=== PATIENT | female | born 1970 | race Two or more races ===

== ENCOUNTER 2022-02-18 15:07 | Outpatient (REF) | payer OTHER, SELFPAY | END 2022-02-18 15:08 | disposition home or self-care (01) | LOC: HO.LAB 15:07 | PROVIDERS: Visit Provider Hospitalist | DX: Z13.89 Encounter for screening for other disorder (principal) ==

== ENCOUNTER 2022-06-04 14:53 | Outpatient (REF) | payer OTHER, SELFPAY ==
--- NOTE | ~2022-06-04 | XR_ITS ---
EXAMINATION: XR WRIST, RIGHT CLINICAL INFORMATION: Right wrist pain. COMPARISON: None TECHNIQUE: PA, lateral, oblique, and scaphoid views of the right wrist. FINDINGS: Mild soft tissue swelling at the right wrist. No acute fracture or malalignment. Bone mineralization is normal. Scaphoid appears intact. Joint spaces are normal. No erosions. Small cystic focus in the fourth metacarpal head is of doubtful clinical significance. Small chronic ossifications are evident at the long finger and small finger metacarpal bases and abdominal clinical significance. XR/XR wrist RT 2V IMPRESSION: Mild soft tissue swelling at the right wrist. No acute osseous findings.
== END 2022-06-04 14:54 | disposition home or self-care (01) ==
LOC: HO.XRAY 14:53
PROVIDERS: PCP Hospitalist; Visit Provider Hospitalist
DX: M25.531 Pain in right wrist (principal)
CPT/HCPCS: 73100

== ENCOUNTER 2022-06-11 05:56 | Outpatient (REF) | payer OTHER, SELFPAY ==
[2022-06-11 07:34] LABS: Hematocrit 40.9 % (37.0-47.0); Hemoglobin 13.2 g/dl (12.0-16.0); Mean Corpuscular HGB Conc 32.3 g/dl (31.0-35.0); Mean Corpuscular Hemoglobin 27.5 pg (27.0-33.0); Mean Corpuscular Volume 85.2 fL (80.0-98.0); Mean Platelet Volume 10.1 fL (9.4-12.3); Platelet Count 374 X10*3/uL (160-400); White Blood Count 9.8 X10*3/uL (4.8-10.8)
[2022-06-11 08:05] LABS: Alanine Aminotransferase 20 U/L (0-31); Albumin Level 4.1 g/dL (3.5-5.0); Alkaline Phosphatase 75 U/L (39-117); Anion Gap 16 (12-20); Aspartate Amino Transferase 15 U/L (5-31); Bilirubin Total 0.7 mg/dL (0.0-1.0); Blood Urea Nitrogen 17 mg/dL (9-16); Calcium 9.7 mg/dL (8.4-10.2); Carbon Dioxide 27 mmol/L (22-29); Chloride 102 mmol/L (96-108); Cholesterol 253 mg/dL; Estimated Glomerular Filt Rate > 60; Glucose Fasting 176 mg/dL (60-99); HDL Cholesterol 61 mg/dL; LDL Cholesterol Calculated 170 mg/dl; Potassium 4.6 mmol/L (3.3-5.1); Sodium 140 mmol/L (135-145); Total Protein 7.4 g/dL (6.5-8.0); Triglycerides 111 mg/dL
[2022-06-11 08:23] LABS: TSH reflex Free T4 3.81 uIU/mL (0.32-4.0)
== END 2022-06-11 05:57 | disposition home or self-care (01) ==
LOC: HO.LAB 05:56
PROVIDERS: PCP Hospitalist; Visit Provider Nurse Practitioner Family
DX: Z00.00 Encounter for general adult medical examination without abnormal findings (principal)
CPT/HCPCS: 36415; 80053; 80061; 84443; 85027

== ENCOUNTER 2023-07-19 07:57 | Outpatient (AMB) | payer OTHER, SELFPAY ==
--- NOTE | 2023-07-19 07:59 | A.OFFPC_ITS ---
Vital Signs 07/19/23 08:50 07/19/23 09:04 Height 5 ft 9 in Weight 183 lb 2 oz BMI 27.0 BP 186/84 H 167/78 H Blood Pressure Location Rt brachial Rt brachial Position Sitting Sitting Respiration 13 Pulse 104 H Pulse Source Pulse Oximeter Temp 98.2 F Intake Visit Reasons: TC SV/DM, HTN Intake Note: Follow up diabetes and blood pressure. She ran out of blood pressure medication 20 days ago. 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 Allergies No Known Allergies Allergy (Verified 07/19/23 09:10) Medication List - Last Reconciled 07/19/23 by Katie Llamas, CADD OPERATOR- amitriptyline 25 mg PO BEDTIME ammonium lactate 12% 1 appl topical BID bisoprolol-hydrochlorothiazide 5-6.25 mg 1 tab PO DAILY PRN blood sugar diagnostic (FreeStyle Lite Strips) As directed blood-glucose meter (FreeStyle Lite Meter kit) As directed empagliflozin (Jardiance) 25 mg PO QAM glipizide 5 mg PO BID lancets (FreeStyle Lancets) As directed metformin 1,000 mg PO BIDWMEAL naproxen 500 mg PO BID PRN Tobacco use date assessed: 06/04/22 Dental Screening Dental Screen Date: 07/19/23 Did you have a dental visit in the last 12 months?: Yes Did you have a dental problem in the last 6 months where you did not have access to dental care?: No Was dental information given to patient?: Patient has dentist HPI HPI Comments History of Present Illness Details 53-year-old Irish speaking female with hypertension, psoriasis, AFib, diabetes type 2, fatty liver, former smoker, hyperlipidemia, insomnia, microalbuminuria Health maintenance Colonoscopy has never had one, referral placed today DEXA never had done. Mammo also in DR. No records available. Reports normal w/in last year. Pap Diabetic eye exam reported UTD in the [facility] 2 months ago. NO records for me. Ok w/ new referral. Hemoglobin A1c 14% today Vaccines : declines flu shot Specialists: Op[facility] reports active but no records Labs 06/11/2022 show a normal CBC, normal CMP, total cholesterol 253, LDL 170, HDL 61, triglycerides 111, TSH 3.81, last hemoglobin A1c 06/04/2022 11.4% Intepreter: [id number] Here today to est care Has been w/o all of her medications for several weeks except her amytriptyline which she uses for sleep. In regards to her Afib reports she is active w/ Cards but i do not have any records. She is not on anti-coag. Labs from today show a sodium level of 131, BUN 15, creatinine 1.09, EGFR 52, random glucose 420, normal LFTs, normal B12, normal TSH, urine microalbumin creatinine ratio elevated at 62.3 [facility] Medical History (Updated 07/19/23 @ 15:25 by Katie Llamas, [facility]) Cholesterol calculus of gallbladder Fatty (change of) liver, not elsewhere classified Family History Mother Diabetes Social History (Updated 07/19/23 @ 08:50 by Kelsea Shields CMA) Household Members: Spouse Housing: Apartment Alcohol intake: current Alcohol intake frequency: holidays/special occasions only Patient Tobacco Use Status: Former Tobacco user Quit Date: 6 years ago Cigarettes Per Day: 4 e-Cigarette/Vaping Use: Never Used Second Hand Smoke Exposure: No service: No Current occupational status: employed 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 1. Little interest or pleasure in doing things: not at all 2. Feeling down, depressed, or hopeless: not at all 3. Trouble falling or staying asleep, or sleeping too much: not at all 4. Feeling tired or having little energy: not at all 5. Poor appetite or overeating: not at all 6. Feeling bad about yourself - or that you are a failure or have let yourself or your family down: not at all 7. Trouble concentrating on things, such as reading the newspaper or watching television: not at all 8. Moving or speaking so slowly that other people could have noticed. Or the opposite - being so fidgety or restless that you have been moving around a lot more than usual: not at all 9. Thoughts that you would be better off or of hurting yourself in some way: not at all Total score: 0 Depression Screening Interpretation: Negative Depression Screening Done: Yes [id number] - PHQ-9 Billing: Yes Source: Developed by Drs. Atilio Mccormack, Christi Galvez, Pio Stewart and colleagues, with an educational sam from [email or web address]. Thrive Questionnaire Date Thrive assessed: 07/19/23 What is your living situation today?: I have a steady place to live Within the past 12 months, did the food you bought not last and you didn't have the money to get more?: Never true Within the past 12 months, did you worry whether your food would run out before you got money to buy more?: Never true Do you have trouble paying for medicines?: No Do you have trouble getting transportation to medical appointments?: No Do you have trouble paying your heating and electricity bill?: No Do you have trouble taking care of your child, family member or friend?: No Do you have trouble with day-to-day activities such as bathing, preparing meals, shopping, managing finances, etc.?: No Are you currently unemployed and looking for a job?: No Are you interested in more education?: No Please select the resources that you would like help with: None Currently or been in a relationship where the following occur: no concerns reported THRIVE Score: 0 AUDIT C Alcohol Use Questionnaire (AUDIT-C) 1. How often do you have a drink containing alcohol?: Monthly or less 2. How many drinks containing alcohol do you have on a typical day when you are drinking?: 1 or 2 3. How often do you have six or more drinks on one occasion?: Never Total Score: 1 Score Reviewed/Action Taken: Yes STEFANO-7 AMB Questionnaire STEFANO-7 Feeling nervous, anxious, or on edge: 1 = Several days Not being able to stop or control worryin = Several days Worrying too much about different things: 1 = Several days Trouble relaxin = Not at all Being so restless that it is hard to sit still: 0 = Not at all Becoming easily annoyed or irritable: 0 = Not at all Feeling afraid as if something awful might happen: 0 = Not at all Total STEFANO-7 score (0-4 normal; 5-9 mild; 10-14 moderate; 15-21 severe): 3 Source: Developed by Christi SantizoW. Lenny, Pio Stewart and colleagues, with an educational sam from [email or web address]. STEFANO-7 Assessment Billing STEFANO-7 Assessment Tool: STEFANO-7 Assessment 25651 Review of Systems Const All systems reviewed & are unremarkable except as noted in HPI and below Physical exam (Primary Care) Vital Signs: Last Vital Signs Temp 98.2 F 07/19/23 08:50 Pulse 104 H 07/19/23 08:50 Resp 13 07/19/23 08:50 BP 167/78 H 07/19/23 09:04 Care Plan Goal for BP management: check labs restart meds BMI result Body Mass Index 27.0 BMI Assessment/Plan discussion: High BMI High, discussed plan: lifestyle Tobacco/Smoking Status: Tobacco use Status Tobacco use date assessed 06/04/22 07/19/23 08:00 Patient Tobacco Use Status Former Tobacco user 07/19/23 08:50 e-Cigarette/Vaping Use Never Used 07/19/23 08:50 PHQ-9: PHQ-9 Score PHQ-9: Total score 0 07/19/23 09:57 Depression Screening Interpretation: Negative Thrive Assessment: Date of Thrive Assessment Date Thrive assessed 07/19/23 07/19/23 09:29 Currently or been in a relationship where the following occur: no concerns reported Advance Care Planning discussion: Exists, not on file Date of discussion: 07/19/23 Time spent: 1-15 minutes, not on file Const Other: awake alert scleras nonicteric bilat MMM AFib LS CTAB BLE skin intact, dry, flaking, hairless, decreased PP bilat, toe nails thickened and fungal Abnormal monofilament and vibratory sensation bilat Mood and affect appropriate Office Procedures Diabetic Foot Exam G9226 - Diabetic Foot Exam Results AMB Hemoglobin A1c AMB Hemoglobin A1c 14.0 % Last Edit by Kelsea Shields CMA on 07/19/23 09:1 7 Results Reviewed Results Reviewed: Laboratory Last Values Hgb A1c (Clinic) 14.0 % (4.0-6.0) H 07/19/23 09:16 Assessment and Plan Assessment & Plan (1) Diabetes mellitus type 2 with complications: Comment: uncontrolled HgA1c 14% Plan: Refer to DM eye exam Was on metformin 1000 mg BID - has been w/o for weeks Record review show glipizide 5mg po BID, Jardiance 25 mg po QD RX in the past Plan: Start jardiance/metformin 12.5mg/1000mg 1 tab po BID, Glipizide 5mg po BID. Refill on testing supplies sent. Code(s): E11.8 - Type 2 diabetes mellitus with unspecified complications (2) HTN, goal below 130/80: Comment: Not at goal, w/o her meds for weeks Bisoprolol 5mg- HCTZ 6.25mg po QD - refill sent. Code(s): I10 - Essential (primary) hypertension (3) A-fib: Comment: noted on exam today, no cards records, not on anti-coag Refer to Cards for further mgmt On [employer] Code(s): I48.91 - Unspecified atrial fibrillation Qualifiers: Atrial fibrillation type: paroxysmal Qualified Code(s): I48.0 - Paroxysmal atrial fibrillation (4) Secondary hypercoagulable state: Comment: see Afib Code(s): D68.69 - Other thrombophilia (5) Fatty liver: Comment: noted in hx. Refer to GI for Colon and further mgmt 06/2024 LFTs WNL Code(s): K76.0 - Fatty (change of) liver, not elsewhere classified (6) Asymptomatic PVD (peripheral vascular disease): Comment: based on exam of decreased PP, skin dry, hairless Plan: check labs, start statin, start lac-hydrin BID, monitor skin integrity Code(s): I73.9 - Peripheral vascular disease, unspecified (7) Insomnia: Comment: well controlled on amitriptyline 25mg QHS, cont. Code(s): G47.00 - Insomnia, unspecified Qualifiers: Insomnia type: primary Qualified Code(s): F51.01 - Primary insomnia (8) Hyperlipidemia associated with type 2 diabetes mellitus: Comment: check direct LDL today as she is nonfasting start appropriate statin Code(s): E11.69 - Type 2 diabetes mellitus with other specified complication; E78.5 - Hyperlipidemia, unspecified (9) Diabetic peripheral neuropathy: Comment: DM foot exam today - abnormal monitor skin integrity Code(s): E11.42 - Type 2 diabetes mellitus with diabetic polyneuropathy (10) Microalbuminuria due to type 2 diabetes mellitus: Comment: 07/19/23 micro albumin/cr ratio 62.3 Code(s): E11.29 - Type 2 diabetes mellitus with other diabetic kidney complication; R80.9 - Proteinuria, unspecified (11) CKD (chronic kidney disease) stage 3, GFR 30-59 ml/min: Comment: Labs from today show a sodium level of 131, BUN 15, creatinine 1.09, EGFR 52, urine microalbumin creatinine ratio elevated at 62.3 starting her back on jardiance Code(s): N18.30 - Chronic kidney disease, stage 3 unspecified Qualifiers: Chronic kidney disease stage 3 subtype: stage 3a (GFR 45-59) Qualified Code(s): N18.31 - Chronic kidney disease, stage 3a Plan This note is constructed using voice recognition software. While every effort has been made to ensure accuracy in quality control lab technician, still errors may have been included Sometimes, these errors may affect the content or meaning of the given sentence . Total time spent caring for the patient today was 60 minutes. This includes time spent before the visit reviewing the chart, time spent during the visit, and time spent after the visit on documentation Orders: Orders TSH reflex Free T4 Today E10.69 - Type 1 diabetes mellitus with other specified complication, E10.8 - Type 1 diabetes mellitus with unspecified complications, E78.5 - Hyperlipidemia, unspecified, I10 - Essential (primary) hypertension, K76.0 - Fatty (change of) liver, not elsewhere classified Vitamin B12 and Folate Today E10.69 - Type 1 diabetes mellitus with other specified complication, E10.8 - Type 1 diabetes mellitus with unspecified complications, E78.5 - Hyperlipidemia, unspecified, I10 - Essential (primary) hypertension, K76.0 - Fatty (change of) liver, not elsewhere classified Hemoglobin A1c POC Today E10.8 - Type 1 diabetes mellitus with unspecified complications Comprehensive Met. Panel Today E10.69 - Type 1 diabetes mellitus with other specified complication, E10.8 - Type 1 diabetes mellitus with unspecified complications, E78.5 - Hyperlipidemia, unspecified, I10 - Essential (primary) hypertension, K76.0 - Fatty (change of) liver, not elsewhere classified LDL Cholesterol Direct Today E10.69 - Type 1 diabetes mellitus with other specified complication, E10.8 - Type 1 diabetes mellitus with unspecified complications, E78.5 - Hyperlipidemia, unspecified, I10 - Essential (primary) hypertension, K76.0 - Fatty (change of) liver, not elsewhere classified Vitamin D 1,25 dihydroxy Today E10.69 - Type 1 diabetes mellitus with other specified complication, E10.8 - Type 1 diabetes mellitus with unspecified complications, E78.5 - Hyperlipidemia, unspecified, I10 - Essential (primary) hypertension, K76.0 - Fatty (change of) liver, not elsewhere classified Microalbumin, Random (w Creat) Today E10.69 - Type 1 diabetes mellitus with other specified complication, E10.8 - Type 1 diabetes mellitus with unspecified complications, E78.5 - Hyperlipidemia, unspecified, I10 - Essential (primary) hypertension, K76.0 - Fatty (change of) liver, not elsewhere classified AMB Diabetic Foot Exam Today E11.8 - Type 2 diabetes mellitus with unspecified complications Referrals Diabetic Eye Exam Referral E10.8 - Type 1 diabetes mellitus with unspecified complications Gastroenterology Referral K76.0 - Fatty (change of) liver, not elsewhere classified, Z12.11 - Encounter for screening for malignant neoplasm of colon Cardiology Referral I48.91 - Unspecified atrial fibrillation Medications: New empagliflozin-metformin 12.5-1,000 mg 1 tab PO BID 180 tabs 0RF glipizide 5 mg PO BID 180 tabs 0RF ammonium lactate 12% 1 appl topical BID 385 grams 6RF Changed From bisoprolol-hydrochlorothiazide 5-6.25 mg 1 tab PO DAILY PRN 90 tabs 0RF afib I10 - Essential (primary) hypertension To bisoprolol-hydrochlorothiazide 5-6.25 mg 1 tab PO DAILY 90 tabs 0RF I10 - Essential (primary) hypertension Refilled blood sugar diagnostic (FreeStyle Lite Strips) As directed 100 ea 11RF E11.8 - Type 2 diabetes mellitus with unspecified complications lancets (FreeStyle Lancets) As directed 100 ea 11RF E11.8 - Type 2 diabetes mellitus with unspecified complications Discontinued metformin Discontinued Reason: Doctor's Order 1,000 mg PO BIDWMEAL 60 tabs 2RF E10.65 - Type 1 diabetes mellitus with hyperglycemia Patient Instructions: labs today, RTO in 1 week to f/u on labs, HTN and medications Review Patient declined Pneumococcal Vaccine: 07/19/23 Flu Vaccine not done: patient reason Declined TDap/Td: 07/19/23 Coding Level of Care Code Est Pt Level 5 (24172) Diagnoses Diabetes mellitus type 2 with complications E11.8 HTN, goal below 130/80 I10 Paroxysmal atrial fibrillation I48.0 Atrial fibrillation type: paroxysmal Secondary hypercoagulable state D68.69 Fatty liver K76.0 Asymptomatic PVD (peripheral vascular disease) I73.9 Primary insomnia F51.01 Insomnia type: primary Hyperlipidemia associated with type 2 diabetes mellitus E11.69; E78.5 Diabetic peripheral neuropathy E11.42 Microalbuminuria due to type 2 diabetes mellitus E11.29; R80.9 Stage 3a chronic kidney disease N18.31 Chronic kidney disease stage 3 subtype: stage 3a (GFR 45-59) CPT Codes Diabetic Foot Exam - CPT: G9226 - Diabetic Foot Exam ([id number]) Additional Codes STEFANO-7 Assessment Billing - STEFANO-7 Assessment Tool: STEFANO-7 Assessment 76837 ([id number]) Vital Signs *Quality* - Advance Care Planning discussion: Exists, not on file ([id number]) Vital Signs *Quality* - Time spent: 1-15 minutes, not on file ([id number])
[2023-07-19 08:50] VITALS: BP 186/84; PULSE 104; RESP 13; TEMP 36.8; BMI 27.0
[2023-07-19 09:04] VITALS: BP 167/78
== END 2023-07-19 09:36 | disposition home or self-care (01) ==
PROVIDERS: PCP Hospitalist; Visit Provider Nurse Practitioner Family
DX: Z00.00 Encounter for general adult medical examination without abnormal findings (principal)
CPT/HCPCS: 1124F; 99215

== ENCOUNTER 2023-07-19 09:15 | Outpatient (REF) | payer OTHER, SELFPAY | END 2023-07-19 09:16 | disposition home or self-care (01) | LOC: HO.LAB 09:15 | PROVIDERS: Visit Provider Nurse Practitioner Family | DX: Z13.89 Encounter for screening for other disorder (principal) ==

== ENCOUNTER 2023-07-19 09:42 | Outpatient (REF) | payer OTHER, SELFPAY ==
[2023-07-19 12:45] LABS: Microalbum/Creatinine Ratio Ur 62.3 ug/mg cr (<30)
[2023-07-19 13:03] LABS: Folate 10.6 ng/mL (> or = 4.0); Vitamin B12 355 pg/mL (200-900)
[2023-07-19 13:35] LABS: Alanine Aminotransferase 20 U/L (0-31); Albumin Level 4.5 g/dL (3.5-5.0); Alkaline Phosphatase 96 U/L (39-117); Anion Gap 17 (12-20); Aspartate Amino Transferase 14 U/L (5-31); Bilirubin Total 0.3 mg/dL (0.0-1.0); Blood Urea Nitrogen 15 mg/dL (9-16); Carbon Dioxide 23 mmol/L (22-29); Chloride 95 mmol/L (96-108); Estimated Glomerular Filt Rate 52; Glucose Random 420 mg/dL (60-115); Potassium 4.2 mmol/L (3.3-5.1); Sodium 131 mmol/L (135-145); Total Protein 8.6 g/dL (6.5-8.0)
[2023-07-20 21:23] LABS: LDL Cholesterol Direct 202 mg/dL (<100)
[2023-07-24 11:09] LABS: VITAMIN D (1,25 OH) D3 46 pg/mL; Vit D (1,25-Dihydroxy) Total 46 pg/mL (18-72); Vitamin D (1,25 OH) D2 <8 pg/mL
== END 2023-07-19 09:43 | disposition home or self-care (01) ==
LOC: HO.WFDLDS 09:42
PROVIDERS: Visit Provider Nurse Practitioner Family
DX: K76.0 Fatty (change of) liver, not elsewhere classified (principal); E10.69 Type 1 diabetes mellitus with other specified complication; E78.5 Hyperlipidemia, unspecified; I10 Essential (primary) hypertension
CPT/HCPCS: 36415; 80053; 82043; 82570; 82607; 82652; 82746; 83721; 84443

== ENCOUNTER 2023-08-12 09:45 | Outpatient (AMB) | payer OTHER, SELFPAY ==
[2023-08-12 09:50] VITALS: BP 156/78; PULSE 89; RESP 13; TEMP 36.3; O2SAT 99; BMI 26.7
--- NOTE | 2023-08-12 09:50 | A.OFFPC_ITS ---
Vital Signs 08/12/23 09:50 Height 5 ft 9 in Weight 181 lb 2 oz BMI 26.7 BP 156/78 H Blood Pressure Location Rt brachial Position Sitting Respiration 13 Pulse 89 Pulse Source Pulse Oximeter Temp 97.4 F Temp Source Temporal Artery Scan Pulse Oximetry (%) 99 Oxygen Delivery Method Room Air Intake Visit Reasons: 1 week follow up Intake Note: Patient still has not received the prescription that was prescribed last time she was here. Patient is also concerned about labs for pre-diabetes. Textile Machine Maintenance Mechanic Required: Yes Textile Machine Maintenance Mechanic Name: Melonie ([id number]) Accompanied by: Spouse Allergies No Known Allergies Allergy (Verified 08/12/23 09:57) Medication List - Last Reconciled 08/12/23 by Katie Llamas, CONNECTION WORKER- amitriptyline 25 mg PO BEDTIME ammonium lactate 12% 1 appl topical BID bisoprolol-hydrochlorothiazide 5-6.25 mg 1 tab PO DAILY blood sugar diagnostic (Contour Next Test Strips) As directed, twice per day blood-glucose meter (Vinny Next Glucose Meter kit) As directed, test twice per day empagliflozin-metformin 12.5-1,000 mg 1 tab PO BID glipizide 5 mg PO BID lancets As directed twice per day naproxen 500 mg PO BID PRN Tobacco use date assessed: 08/12/23 Dental Screening Dental Screen Date: 07/19/23 HPI HPI Comments History of Present Illness Details 53-year-old Azeri speaking female with hypertension, psoriasis, AFib, diabetes type 2, fatty liver, former smoker, hyperlipidemia, insomnia, microalbuminuria, ckd3 Health maintenance Colonoscopy has never had one, referral placed DEXA never had done. Mammo also in DR. No records available. Reports normal w/in last year. Pap Diabetic eye exam reported UTD in the DR. 2 months ago. NO records for me. Ok w/ new referral - placed. Hemoglobin A1c 14% 07/19/23 Vaccines : declines flu shot Specialists: [facility] reports active but no records Textile Machine Maintenance Mechanic: [id number] Here today to f/u on labs Of note - she did not call us back after voicemails left re: labs and meds. She also no showed appts. She is upset saying she is taking meds that she doesnt know why. She knows they are different. Synjardy is causing nausea and feels like it is causing hypoglycemia. Lots of time explaining to her labs and treatment plan. I advised her to update her demos before she leaves so that we can touch base with her. The male visitor here with her today was very rude - laughing and shaking his head; while patient seemed to try to engage she echoed whatever the male's response was. He did come around towards the end of the visit once he understood. States the out of pocket cost was 80$. Upset about not getting freestyle products, here w/ lancets and test strips. No meter. States she does not need a meter. However, this was unclear even w/ help from personal development educator. explained insurance covers Contour products, this was sent. It was also printed and given to her today on paper. states she didnt get RX for BP medication. She is unsure why. This was sent at the time of last visit and was resent again today. Male then states they picked up 30 day supply and 90 day was sent to [facility] and they are waiting. LABS FROM 07/19/2023 LOW SODIUM 131, NORMAL POTASSIUM, BUN OF 15, CREATININE 0.09, EGFR 52, RANDOM GLUCOSE 420, HEMOGLOBIN A1C OF 14% LFTS, ELEVATED DIRECT LDL AT 202, NORMAL B12, NORMAL VITAMIN-D, NORMAL TSH, ELEVATED URINE MICROALBUMIN CREATININE RATIO [facility] Medical History (Updated 08/12/23 @ 13:26 by Katie Llamas, [facility]) Cholesterol calculus of gallbladder Fatty (change of) liver, not elsewhere classified Surgical History (Updated 08/12/23 @ 10:02 by LIDA Eli) No pertinent past surgical history Family History Mother Diabetes Social History Household Members: Spouse Housing: Apartment Alcohol intake: current Alcohol intake frequency: holidays/special occasions only Patient Tobacco Use Status: Never used Tobacco Cigarettes Per Day: 4 e-Cigarette/Vaping Use: Never Used Second Hand Smoke Exposure: No service: No Current occupational status: employed 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 Current occupational exposures/hazards: No Cognitive needs: No Hearing needs: No Vision needs: No Questionnaire Thrive Questionnaire Date Thrive assessed: 07/19/23 Review of Systems Const All systems reviewed & are unremarkable except as noted in HPI and below Physical exam (Primary Care) Vital Signs: Last Vital Signs Temp 97.4 F 08/12/23 09:50 Pulse 89 08/12/23 09:50 Resp 13 08/12/23 09:50 BP 156/78 H 08/12/23 09:50 Pulse Ox 99 08/12/23 09:50 Oxygen Delivery Method Room Air 08/12/23 09:50 Care Plan Goal for BP management: TAKE MEDS DIRECTED Next steps: NN REFERRAL TO HELP COMPLIANCE BMI result Body Mass Index 26.7 BMI Assessment/Plan discussion: High BMI High, discussed plan: lifestyle Tobacco/Smoking Status: Tobacco use Status Tobacco use date assessed 08/12/23 08/12/23 10:03 Patient Tobacco Use Status Never used Tobacco 08/12/23 10:03 e-Cigarette/Vaping Use Never Used 08/12/23 09:50 Thrive Assessment: Date of Thrive Assessment Date Thrive assessed 07/19/23 08/12/23 09:50 Const Other: awake alert accompanied by male talking in full sentences Assessment and Plan Assessment & Plan (1) CKD (chronic kidney disease) stage 3, GFR 30-59 ml/min: Comment: Labs from today show a sodium level of 131, BUN 15, creatinine 1.09, EGFR 52, urine microalbumin creatinine ratio elevated at 62.3 Cont: jardiance Code(s): N18.30 - Chronic kidney disease, stage 3 unspecified Qualifiers: Chronic kidney disease stage 3 subtype: stage 3a (GFR 45-59) Qualified Code(s): N18.31 - Chronic kidney disease, stage 3a (2) Microalbuminuria due to type 2 diabetes mellitus: Comment: 07/19/23 micro albumin/cr ratio 62.3 On Jardiance Code(s): E11.29 - Type 2 diabetes mellitus with other diabetic kidney complication; R80.9 - Proteinuria, unspecified (3) Hyperlipidemia associated with type 2 diabetes mellitus: Comment: LDL goal < 70 Start rosuvastatin 10mg po QD Code(s): E11.69 - Type 2 diabetes mellitus with other specified complication; E78.5 - Hyperlipidemia, unspecified (4) Diabetes mellitus type 2 with complications: Comment: uncontrolled HgA1c 14% Plan: Refer to DM eye exam Was on metformin 1000 mg BID - has been w/o for weeks Record review show glipizide 5mg po BID, Jardiance 25 mg po QD RX in the past Plan: Cont jardiance/metformin 12.5mg/1000mg 1 tab po BID, Glipizide 5mg po BID. Refill on testing supplies sent. She does not want new order for ER version d/t cost. She will cont to take meds as above. Code(s): E11.8 - Type 2 diabetes mellitus with unspecified complications (5) HTN, goal below 130/80: Comment: Not at goal, w/o her meds for weeks Bisoprolol 5mg- HCTZ 6.25mg po QD - refill sent. Sent NN referral to help w/ compliance. Code(s): I10 - Essential (primary) hypertension Plan THIS NOTE IS CONSTRUCTED USING VOICE RECOGNITION SOFTWARE. WHILE EVERY EFFORT HAS BEEN MADE TO ENSURE ACCURACY IN GENERAL PRODUCTION LABORER, STILL ERRORS MAY HAVE BEEN INCLUDED SOMETIMES, THESE ERRORS MAY AFFECT THE CONTENT OR MEANING OF THE GIVEN SENTENCE . TOTAL TIME SPENT CARING FOR THE PATIENT TODAY WAS 75 MINUTES. THIS INCLUDES TIME SPENT BEFORE THE VISIT REVIEWING THE CHART, TIME SPENT DURING THE VISIT, AND TIME SPENT AFTER THE VISIT ON DOCUMENTATION Orders: Orders Lipid Panel 10/24/23 E11.29 - Type 2 diabetes mellitus with other diabetic kidney complication, E11.69 - Type 2 diabetes mellitus with other specified complication, E11.8 - Type 2 diabetes mellitus with unspecified complications, E78.5 - Hyperlipidemia, unspecified, I10 - Essential (primary) hypertension, N18.31 - Chronic kidney disease, stage 3a, R80.9 - Proteinuria, unspecified Vitamin B12 and Folate 10/24/23 E11.29 - Type 2 diabetes mellitus with other diabetic kidney complication, E11.69 - Type 2 diabetes mellitus with other specified complication, E11.8 - Type 2 diabetes mellitus with unspecified complications, E78.5 - Hyperlipidemia, unspecified, I10 - Essential (primary) hypertension, N18.31 - Chronic kidney disease, stage 3a, R80.9 - Proteinuria, unspecified Microalbumin, Random (w Creat) 10/24/23 E11.29 - Type 2 diabetes mellitus with other diabetic kidney complication, E11.69 - Type 2 diabetes mellitus with other specified complication, E11.8 - Type 2 diabetes mellitus with unspecified c omplications, E78.5 - Hyperlipidemia, unspecified, I10 - Essential (primary) hypertension, N18.31 - Chronic kidney disease, stage 3a, R80.9 - Proteinuria, unspecified Vitamin D 1,25 dihydroxy 10/24/23 E11.29 - Type 2 diabetes mellitus with other diabetic kidney complication, E11.69 - Type 2 diabetes mellitus with other specified complication, E11.8 - Type 2 diabetes mellitus with unspecified complications, E78.5 - Hyperlipidemia, unspecified, I10 - Essential (primary) hypertension, N18.31 - Chronic kidney disease, stage 3a, R80.9 - Proteinuria, unspecified Hemoglobin A1c 10/24/23 E11.29 - Type 2 diabetes mellitus with other diabetic kidney complication, E11.69 - Type 2 diabetes mellitus with other specified complication, E11.8 - Type 2 diabetes mellitus with unspecified complications, E78.5 - Hyperlipidemia, unspecified, I10 - Essential (primary) hypertension, N18.31 - Chronic kidney disease, stage 3a, R80.9 - Proteinuria, unspecified Comprehensive Met. Panel 10/24/23 E11.29 - Type 2 diabetes mellitus with other diabetic kidney complication, E11.69 - Type 2 diabetes mellitus with other specified complication, E11.8 - Type 2 diabetes mellitus with unspecified complications, E78.5 - Hyperlipidemia, unspecified, I10 - Essential (primary) hypertension, N18.31 - Chronic kidney disease, stage 3a, R80.9 - Proteinuria, unspecified Referrals Nurse Navigator Referral E11.8 - Type 2 diabetes mellitus with unspecified complications Medications: New rosuvastatin 10 mg PO DAILY 90 tabs 0RF Refilled bisoprolol-hydrochlorothiazide 5-6.25 mg 1 tab PO DAILY 90 tabs 0RF I10 - Essential (primary) hypertension blood sugar diagnostic (Contour Next Test Strips) As directed, twice per day 100 ea 11RF E11.8 - Type 2 diabetes mellitus with unspecified complications blood-glucose meter (Contour Next Glucose Meter kit) As directed, test twice per day 1 ea 0RF E11.8 - Type 2 diabetes mellitus with unspecified complications lancets As directed twice per day 100 ea 11RF E11.8 - Type 2 diabetes mellitus with unspecified complications Patient Instructions: DIABETES GOALS - TAKE MEDS DIRECTED, REPEAT LABS 1 WEEK BEFORE NEXT APPT BARRIERS - EDUCATION AND UNDERSTANDING RTO IN 3 MONTHS FOR ROUTINE F/U, SOONER PRN Coding Level of Care Code Est Pt Level 5 (39384) Complex EM visit Add On G2211 Diagnoses Stage 3a chronic kidney disease N18.31 Chronic kidney disease stage 3 subtype: stage 3a (GFR 45-59) Microalbuminuria due to type 2 diabetes mellitus E11.29; R80.9 Hyperlipidemia associated with type 2 diabetes mellitus E11.69; E78.5 Diabetes mellitus type 2 with complications E11.8 HTN, goal below 130/80 I10
== END 2023-08-12 11:08 | disposition home or self-care (01) ==
PROVIDERS: PCP Nurse Practitioner Family; Visit Provider Nurse Practitioner Family
DX: I12.9 Hypertensive chronic kidney disease with stage 1 through stage 4 chronic kidney disease, or unspecified chronic kidney disease (principal); N18.31 Chronic kidney disease, stage 3a; E11.29 Type 2 diabetes mellitus with other diabetic kidney complication; E11.69 Type 2 diabetes mellitus with other specified complication; E11.8 Type 2 diabetes mellitus with unspecified complications; R80.9 Proteinuria, unspecified; E78.5 Hyperlipidemia, unspecified
CPT/HCPCS: 99215; 99417; G2211

== ENCOUNTER 2023-09-06 16:38 | Outpatient (REF) | payer OTHER, SELFPAY ==
[2023-09-07 08:18] LABS: HIV AB/AG Nonreactive (Nonreactive); HIV Num 1 0.04 S/CO (0.00-0.99); ~HepC Num1 0.07 S/CO (0.00-0.79); ~Hepatitis C Antibody Nonreactive (Nonreactive)
[2023-09-07 08:19] LABS: Syphilis Screen Nonreactive (Nonreactive)
== END 2023-09-06 16:39 | disposition home or self-care (01) ==
LOC: HO.LAB 16:38
PROVIDERS: PCP Nurse Practitioner Family; Visit Provider Physician Assistant
DX: Z20.2 Contact with and (suspected) exposure to infections with a predominantly sexual mode of transmission (principal)
CPT/HCPCS: 36415; 86780; 86803; 87389

== ENCOUNTER 2023-11-14 09:03 | Outpatient (AMB) | payer OTHER, SELFPAY ==
[2023-11-14 09:07] VITALS: BP 108/70; PULSE 67; O2SAT 98; BMI 25.5
--- NOTE | 2023-11-14 09:07 | MHC.PC.OV ---
Vital Signs 11/14/23 09:07 Height 5 ft 9 in Weight 173 lb 0.4 oz BMI 25.5 BP 108/70 Blood Pressure Location Lt brachial Position Sitting Pulse 67 Pulse Source Pulse Oximeter Pulse Oximetry (%) 98 Oxygen Delivery Method Room Air Intake Visit Reasons: ZOIE from [facility]/ MITESH chronic conditions Hot Stamp Operator Required: Yes Hot Stamp Operator Language: Tamazight Allergies No Known Allergies Allergy (Verified 11/14/23 09:07) Medication List - Last Reconciled 11/14/23 by Julia Knott PA-C amitriptyline 25 mg PO BEDTIME ammonium lactate 12% 1 appl topical BID bisoprolol-hydrochlorothiazide 5-6.25 mg 1 tab PO DAILY blood sugar diagnostic (Contour Next Test Strips) As directed, twice per day blood-glucose meter ([employer] Next Glucose Meter kit) As directed, test twice per day empagliflozin-metformin 12.5-1,000 mg (Synjardy) 1 tab PO BID glipizide 5 mg PO BID lancets As directed twice per day naproxen 500 mg PO BID PRN rosuvastatin 10 mg PO DAILY Tobacco use date assessed: 08/12/23 Dental Screening Dental Screen Date: 07/19/23 Did you have a dental visit in the last 12 months?: No Did you have a dental problem in the last 6 months where you did not have access to dental care?: No HPI ZOIE from [facility]/ MITESH chronic conditions HPI Details 53-year-old female with past medical history of AFib, hypertension, fatty liver disease, diabetes mellitus, hyperlipidemia, and chronic kidney disease last seen by nurse practitioner in our [place] office 08/12/2023 coming in for transfer of care.? Her last visit from our office spent time reviewing medications, referred for diabetic eye exam, referred to cardiology.? In review of the notes the patient was scheduled to be seen by Cardiology 07/2023 but did not show up for the appointment. A diplomatic interpreter was utilized at his appointment. Today she tells us she has not been taking the Jardiance metformin combination pill and was unaware she was supposed to be taking it. She also mentions she has run out of glipizide and has been without it for weeks. She also mentioned she has been having left upper quadrant abdominal pain which she mentions is typically all day and worsens without food. She was using naproxen for the pain but states it makes her stomach feel worse. She is also requesting a refill of her lotion which was given to her by her lab tester for for a left leg rash. Reminded patient about blood work. [facility] Medical History (Updated 11/14/23 @ 10:20 by Julia Knott PA-C) Cholesterol calculus of gallbladder Fatty (change of) liver, not elsewhere classified Surgical History (Updated 08/12/23 @ 10:02 by LIDA Eli) No pertinent past surgical history Family History Mother Diabetes Social History Household Members: Spouse Housing: Apartment Alcohol intake: current Alcohol intake frequency: holidays/special occasions only Patient Tobacco Use Status: Never used Tobacco Cigarettes Per Day: 4 e-Cigarette/Vaping Use: Never Used Second Hand Smoke Exposure: No service: No Current occupational status: employed 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 1. Little interest or pleasure in doing things: not at all 2. Feeling down, depressed, or hopeless: not at all 3. Trouble falling or staying asleep, or sleeping too much: not at all 4. Feeling tired or having little energy: not at all 5. Poor appetite or overeating: not at all 6. Feeling bad about yourself - or that you are a failure or have let yourself or your family down: not at all 7. Trouble concentrating on things, such as reading the newspaper or watching television: not at all 8. Moving or speaking so slowly that other people could have noticed. Or the opposite - being so fidgety or restless that you have been moving around a lot more than usual: not at all 9. Thoughts that you would be better off or of hurting yourself in some way: not at all Total score: 0 Depression Screening Interpretation: Negative Depression Screening Done: Yes 66665 - PHQ-9 Billing: Yes Source: Developed by Drs. Atilio L. Christi Mccormack Kurt Kroenke and colleagues, with an educational sam from [employer]. Thrive Questionnaire Date Thrive assessed: 11/14/23 I am a: Patient What is your living situation today?: I have a steady place to live Within the past 12 months, did the food you bought not last and you didn't have the money to get more?: Never true Within the past 12 months, did you worry whether your food would run out before you got money to buy more?: Never true Do you have trouble paying for medicines?: No Do you have trouble getting transportation to medical appointments?: No Do you have trouble paying your heating and electricity bill?: No Do you have trouble taking care of your child, family member or friend?: No Do you have trouble with day-to-day activities such as bathing, preparing meals, shopping, managing finances, etc.?: No Are you currently unemployed and looking for a job?: No Are you interested in more education?: No Please select the resources that you would like help with: None Currently or been in a relationship where the following occur: No concerns reported THRIVE Score: 0 AUDIT C Alcohol Use Questionnaire (AUDIT-C) 1. How often do you have a drink containing alcohol?: Monthly or less 2. How many drinks containing alcohol do you have on a typical day when you are drinking?: 1 or 2 3. How often do you have six or more drinks on one occasion?: Never Total Score: 1 Score Reviewed/Action Taken: Yes STEFANO-7 AMB Questionnaire STEFANO-7 Date STEFANO - 7 assessed: 11/14/23 Feeling nervous, anxious, or on edge: 0 = Not at all Not being able to stop or control worryin = Not at all Worrying too much about different things: 0 = Not at all Trouble relaxin = Not at all Being so restless that it is hard to sit still: 0 = Not at all Becoming easily annoyed or irritable: 0 = Not at all Feeling afraid as if something awful might happen: 0 = Not at all Total STEFANO-7 score (0-4 normal; 5-9 mild; 10-14 moderate; 15-21 severe): 0 Source: Developed by Christi Santizo Kurt Kroenke and colleagues, with an educational sam from [employer]. STEFANO-7 Assessment Billing STEFANO-7 Assessment Tool: STEFANO-7 Assessment 82115 Review of Systems Const Denies body aches, Denies chills, Denies fever(s), Denies headache(s) and Denies poor appetite Eyes Reports no additional complaints ENT Denies dysphagia, Denies dizziness, Denies headache(s) and Denies odynophagia Card Denies chest pain, Denies syncope, Denies edema, Denies irregular heart rhythm, Denies lightheadedness and Denies dyspnea Resp Denies cough and Denies dyspnea GI Details: Occasional left upper quadrant abdominal pain Denies melena, Denies change in bowel habits, Denies constipation, Denies dysphagia, Denies diarrhea, Denies nausea, Denies odynophagia and Denies vomiting Reports no additional complaints Musc Reports no additional complaints, Denies abnormal gait and Denies arthralgias Skin/Breast Details: Dry, red, itchy rash on left lower leg which has been improving with cream. Neuro Denies abnormal gait, Denies dizziness, Denies syncope and Denies headache(s) Psych Reports no additional complaints Physical exam (Primary Care) Vital Signs: Oxygen Delivery Method Room Air 11/14/23 09:07 Tobacco/Smoking Status: Tobacco use Status Tobacco use date assessed 08/12/23 08/12/23 10:03 Patient Tobacco Use Status Never used Tobacco 08/12/23 10:03 e-Cigarette/Vaping Use Never Used 08/12/23 09:50 Depression Screening Interpretation: Negative Thrive Assessment: Date of Thrive Assessment Date Thrive assessed 07/19/23 08/12/23 09:50 Currently or been in a relationship where the following occur: No concerns reported Const General: cooperative, healthy appearing, comfortable and no acute distress Orientation/consciousness: patient oriented x3 HENMT Head: Yes normocephalic Ears: hearing grossly normal bilaterally General nose exam: Normal external nose present Eyes General: appearance normal, both eyes and all related structures Conjunctivae: conjunctivae normal Neck Neck: Yes full ROM and Yes no lymphadenopathy Resp Effort & Inspection: normal respiratory effort Auscultation: clear to auscultation bilaterally, no crackles, no rales, no rhonchi and no wheezes Cardio Rate: regular rate Rhythm: regular rhythm Peripheral pulses: radial pulses present and dorsalis pedis present GI Inspection: Yes normal to inspection and No distended Palpation (GI): Soft to palpation, nontender, no guarding, not rigid, no splenomegaly and no masses Auscultation: normal bowel sounds Skin Other: Dry, flaking, red rash on lateral aspect of left lower leg. No warmth, tenderness, or drainage. Neuro General: patient oriented x3 Gait exam (Neuro): Normal gait present Extrem General: Yes normal to inspection, Yes full ROM and No edema Psych Affect: normal affect Attitude: cooperative Insight: Good insight present (Psych) Judgement: Good judgement present (Psych) Results AMB Hemoglobin A1c AMB Hemoglobin A1c 11.7 % Last Edit by TOD Cope on 11/14/23 09:21 Assessment and Plan Assessment & Plan (1) Diabetes mellitus type 2 with complications: Code(s): E11.8 - Type 2 diabetes mellitus with unspecified complications Plan: Spoke with patient at length about the importance of diabetic management. Her A1c has improved from 14% to 11.7% today. Stressed the importance of Ophthalmology and Podiatry referrals. She has previously met with nurse navigator which she found helpful. Patient is currently only on glipizide and has been out of this medication for several weeks. Patient is not taking Jardiance/metformin combination pill states she has never gotten it. Both medications were resent to pharmacy at this appointment. Patient states she checks her blood sugars weekly and does not do it every day and often has sugars below 100. She also mentions that she skips meals often. Stressed the importance of having 3 sq meals a day and not skipping meals while on glipizide as this can be dangerous with low sugars, and importance of checking sugars daily instead of weekly. We will also refer to endocrinology for further management of diabetes. Decrease the amount of carbohydrates such as pasta, bread, rice, and potatoes and limit the amount of sweets. Although fruits are generally healthy they should be eaten in moderation as they are still high in sugar. (2) HTN, goal below 130/80: Code(s): I10 - Essential (primary) hypertension Plan: Blood pressure is currently at goal today 108/70. Continue on bisoprolol hydrochlorothiazide. Avoid salt intake and encourage healthy diet and regular exercise. (3) A-fib: Comment: noted on exam today, no cards records, not on anti-coag Refer to Cards for further mgmt - no showed On [employer] Code(s): I48.91 - Unspecified atrial fibrillation Qualifiers: Atrial fibrillation type: paroxysmal Qualified Code(s): I48.0 - Paroxysmal atrial fibrillation Plan: AFib noted on last exam. On auscultation and radial palpation no evidence of AFib at this time. Patient declined referral to Cardiology or EKG. She states she has never had a heart arrhythmia or any other heart issues and does not want to see Cardiology. She had been scheduled in July for appointment with Cardiology in no showed. (4) CKD (chronic kidney disease) stage 3, GFR 30-59 ml/min: Code(s): N18.30 - Chronic kidney disease, stage 3 unspecified Qualifiers: Chronic kidney disease stage 3 subtype: stage 3a (GFR 45-59) Qualified Code(s): N18.31 - Chronic kidney disease, stage 3a Plan: Sent for updated labs. (5) Hyperlipidemia associated with type 2 diabetes mellitus: Code(s): E11.69 - Type 2 diabetes mellitus with other specified complication; E78.5 - Hyperlipidemia, unspecified Plan: Avoid foods that are high in cholesterol such as red meat, fried foods, eggs and baked goods. LDL goal of less than 70. Continue on rosuvastatin 10 mg. Reminded patient about repeat labs to monitor for efficacy of rosuvastatin. (6) Psoriasiform dermatitis: Code(s): L30.8 - Other specified dermatitis Plan: Patient has a rash on her left leg and has seen Dermatology for this problem. She has been using Tapinarof cream with good success which was prescribed by Dermatology. Advised patient to continue to follow up with Dermatology and cream was refilled at this appointment. (7) LUQ abdominal pain: Code(s): R10.12 - Left upper quadrant pain Plan: Patient states she has been having left upper quadrant pain almost every day which improves with eating and worsens without food. On exam there is no tenderness to palpation, rebound tenderness, rigidity, or masses that are palpable. Patient states she is not having pain at this time. Patient has an appointment with Gastroenterology in the coming weeks and she will follow up with them or sooner if abdominal pain worsens. Plan Plan to follow up in 3 months for evaluation of diabetes and hypercholesterolemia management. This note was constructed using voice recognition software.? While every effort has been made to ensure accuracy and electrical tests supervisor, still areas may have been included sometimes these areas may affect the content or meeting of the given symptoms.? Total time spent caring for the patient today was 60 minutes.? This includes time spent before the visit reviewing the chart, time spent during the visit, and time spent after the visit and documentation. Orders: Orders Comprehensive Met. Panel Today E11.29 - Type 2 diabetes mellitus with other diabetic kidney complication, E11.69 - Type 2 diabetes mellitus with other specified complication, E11.8 - Type 2 diabetes mellitus with unspecified complications, E78.5 - Hyperlipidemia, unspecified, I10 - Essential (primary) hypertension, N18.31 - Chronic kidney disease, stage 3a, R80.9 - Proteinuria, unspecified Microalbumin, Random (w Creat) Today E11.29 - Type 2 diabetes mellitus with other diabetic kidney complication, E11.69 - Type 2 diabetes mellitus with other specified complication, E11.8 - Type 2 diabetes mellitus with unspecified complications, E78.5 - Hyperlipidemia, unspecified, I10 - Essential (primary) hypertension, N18.31 - Chronic kidney disease, stage 3a, R80.9 - Proteinuria, unspecified AMB Hemoglobin A1c Today E11.8 - Type 2 diabetes mellitus with unspecified complications Lipid Panel Today E11.29 - Type 2 diabetes mellitus with other diabetic kidney complication, E11.69 - Type 2 diabetes mellitus with other specified complication, E11.8 - Type 2 diabetes mellitus with unspecified complications, E78.5 - Hyperlipidemia, unspecified, I10 - Essential (primary) hypertension, N18.31 - Chronic kidney disease, stage 3a, R80.9 - Proteinuria, unspecified Vitamin B12 and Folate Today E11.29 - Type 2 diabetes mellitus with other diabetic kidney complication, E11.69 - Type 2 diabetes mellitus with other specified complication, E11.8 - Type 2 diabetes mellitus with unspecified complications, E78.5 - Hyperlipidemia, unspecified, I10 - Essential (primary) hypertension, N18.31 - Chronic kidney disease, stage 3a, R80.9 - Proteinuria, unspecified Vitamin D 1,25 dihydroxy Today E11.29 - Type 2 diabetes mellitus with other diabetic kidney complication, E11.69 - Type 2 diabetes mellitus with other specified complication, E11.8 - Type 2 diabetes mellitus with unspecified complications, E78.5 - Hyperlipidemia, unspecified, I10 - Essential (primary) hypertension, N18.31 - Chronic kidney disease, stage 3a, R80.9 - Proteinuria, unspecified Referrals Endocrinology Referral E11.8 - Type 2 diabetes mellitus with unspecified complications Dermatology Referral L30.8 - Other specified dermatitis Medications: New tapinarof 1% (Vtama) apply to affected area daily 1 appl topical DAILY 60 grams 0RF Refilled glipizide 5 mg PO BID 60 tabs 1RF empagliflozin-metformin 12.5-1,000 mg (Synjardy) 1 tab PO BID 60 tabs 0RF amitriptyline 25 mg PO BEDTIME 30 tabs 1RF Coding Level of Care Code Est Pt Level 4 (43389) Diagnoses Diabetes mellitus type 2 with complications E11.8 HTN, goal below 130/80 I10 Paroxysmal atrial fibrillation I48.0 Atrial fibrillation type: paroxysmal Stage 3a chronic kidney disease N18.31 Chronic kidney disease stage 3 subtype: stage 3a (GFR 45-59) Hyperlipidemia associated with type 2 diabetes mellitus E11.69; E78.5 Psoriasiform dermatitis L30.8 LUQ abdominal pain R10.12 Additional Codes STEFANO-7 Assessment Billing - STEFANO-7 Assessment Tool: STEFANO-7 Assessment [id number] ([id number])
== END 2023-11-14 10:14 | disposition home or self-care (01) ==
PROVIDERS: PCP Nurse Practitioner Family
DX: E11.22 Type 2 diabetes mellitus with diabetic chronic kidney disease (principal); I12.9 Hypertensive chronic kidney disease with stage 1 through stage 4 chronic kidney disease, or unspecified chronic kidney disease; N18.31 Chronic kidney disease, stage 3a; I48.0 Paroxysmal atrial fibrillation; E78.5 Hyperlipidemia, unspecified; L30.8 Other specified dermatitis; R10.12 Left upper quadrant pain
CPT/HCPCS: 83036; 99214

== ENCOUNTER 2024-04-02 10:34 | Outpatient (AMB) | payer OTHER, SELFPAY ==
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
[2024-04-02 10:46] VITALS: BP 132/72; PULSE 68; O2SAT 98; BMI 26.8
== END 2024-04-02 11:52 | disposition home or self-care (01) ==
DX: E11.8 Type 2 diabetes mellitus with unspecified complications (principal); N18.31 Chronic kidney disease, stage 3a; E11.29 Type 2 diabetes mellitus with other diabetic kidney complication; E11.42 Type 2 diabetes mellitus with diabetic polyneuropathy; I73.9 Peripheral vascular disease, unspecified; R80.9 Proteinuria, unspecified; K76.0 Fatty (change of) liver, not elsewhere classified; I48.0 Paroxysmal atrial fibrillation

== ENCOUNTER → 2024-04-02 10:34 | Outpatient (BNVA) | payer OTHER, SELFPAY | DX: E11.22 Type 2 diabetes mellitus with diabetic chronic kidney disease (principal); N18.31 Chronic kidney disease, stage 3a; E11.29 Type 2 diabetes mellitus with other diabetic kidney complication; R80.9 Proteinuria, unspecified; E11.42 Type 2 diabetes mellitus with diabetic polyneuropathy; I73.9 Peripheral vascular disease, unspecified; K76.0 Fatty (change of) liver, not elsewhere classified; I48.0 Paroxysmal atrial fibrillation | CPT/HCPCS: 83036 ==

== ENCOUNTER 2024-07-02 08:57 | Outpatient (AMB) | payer OTHER, SELFPAY ==
--- NOTE | 2024-07-02 09:02 | MHC.PC.OV ---
Vital Signs 07/02/24 09:03 Height 5 ft 9 in Weight 182 lb 6 oz BMI 26.9 BP 124/80 Blood Pressure Location Lt brachial Position Sitting Pulse 84 Pulse Source Pulse Oximeter Pulse Oximetry (%) 96 Oxygen Delivery Method Room Air Intake Visit Reasons: f/u DM and HLD 3Rd Grade Reading Teacher Required: Yes Accompanied by: Self / Same As Patient Allergies No Known Allergies Allergy (Verified 07/02/24 09:04) Medication List - Last Reconciled 07/02/24 by Julia Knott PA-C amitriptyline 25 mg PO BEDTIME ammonium lactate 12% 1 appl topical BID bisoprolol-hydrochlorothiazide 5-6.25 mg 1 tab PO DAILY blood sugar diagnostic (Dining Secretary Next Test Strips) As directed, twice per day blood-glucose meter (Dining Secretary Next Glucose Meter kit) As directed, test twice per day empagliflozin-metformin 12.5-1,000 mg (Synjardy) 1 tab PO BID glipizide 5 mg PO BID lancets As directed twice per day naproxen 500 mg PO BID PRN rosuvastatin 10 mg PO DAILY tapinarof 1% (Vtama) 1 appl topical DAILY Tobacco use date assessed: 07/02/24 Dental Screening Dental Screen Date: 07/02/24 Did you have a dental visit in the last 12 months?: Yes Did you have a dental problem in the last 6 months where you did not have access to dental care?: No Was dental information given to patient?: Patient has dentist HPI f/u DM and HLD HPI Details 53-year-old female with past medical history of AFib, hypertension, fatty liver disease, diabetes mellitus, hyperlipidemia, and chronic kidney disease last seen 03/2024 coming in for follow up.Edgardo Brown [id number] energy project manager was used for the duration of this visit. Presenting with Type 2 Diabetes Mellitus. Historical A1c was 10.1% reduced to 9.3%, indicating some improvement but not meeting the goal of below 7% currently on Synjardy and Glipizide. Self-reported reduced appetite likely secondary to diabetes medications though does not typically result in complete lack of appetite. Dietary factors noted include the consumption of high-carbohydrate foods like cakes which impact glucose control. HAs not yet made appointment with the computer systems technology instructor or gastro. 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 1. Little interest or pleasure in doing things: not at all 2. Feeling down, depressed, or hopeless: not at all 3. Trouble falling or staying asleep, or sleeping too much: not at all 4. Feeling tired or having little energy: not at all 5. Poor appetite or overeating: not at all 6. Feeling bad about yourself - or that you are a failure or have let yourself or your family down: not at all 7. Trouble concentrating on things, such as reading the newspaper or watching television: not at all 8. Moving or speaking so slowly that other people could have noticed. Or the opposite - being so fidgety or restless that you have been moving around a lot more than usual: not at all 9. Thoughts that you would be better off or of hurting yourself in some way: not at all Total score: 0 Depression Screening Interpretation: Negative Depression Screening Done: Yes [id number] - PHQ-9 Billing: Yes Source: Developed by Drs. Atilio Mccormack, Christi Galvez, Pio Stewart and colleagues, with an educational sam from [employer]. Thrive Questionnaire Date Thrive assessed: 07/02/24 I am a: Patient What is your living situation today?: I have a steady place to live Within the past 12 months, did the food you bought not last and you didn't have the money to get more?: Never true Within the past 12 months, did you worry whether your food would run out before you got money to buy more?: Never true Do you have trouble paying for medicines?: No Do you have trouble getting transportation to medical appointments?: No Do you have trouble paying your heating and electricity bill?: No Do you have trouble taking care of your child, family member or friend?: No Do you have trouble with day-to-day activities such as bathing, preparing meals, shopping, managing finances, etc.?: No Are you currently unemployed and looking for a job?: No Are you interested in more education?: No Please select the resources that you would like help with: None Currently or been in a relationship where the following occur: No concerns reported THRIVE Score: 0 AUDIT C Alcohol Use Questionnaire (AUDIT-C) 1. How often do you have a drink containing alcohol?: Monthly or less 2. How many drinks containing alcohol do you have on a typical day when you are drinking?: 1 or 2 3. How often do you have six or more drinks on one occasion?: Never Total Score: 1 Score Reviewed/Action Taken: Yes STEFANO-7 AMB Questionnaire STEFANO-7 Date STEFANO - 7 assessed: 07/02/24 Feeling nervous, anxious, or on edge: 0 = Not at all Not being able to stop or control worryin = Not at all Worrying too much about different things: 0 = Not at all Trouble relaxin = Not at all Being so restless that it is hard to sit still: 0 = Not at all Becoming easily annoyed or irritable: 0 = Not at all Feeling afraid as if something awful might happen: 0 = Not at all Total STEFANO-7 score (0-4 normal; 5-9 mild; 10-14 moderate; 15-21 severe): 0 Source: Developed by Drs. Atilio Mccormack, Christi Galvez, Pio Stewart and colleagues, with an educational sam from [employer]. Review of Systems Const Denies body aches, Denies chills, Denies fever(s), Denies headache(s) and Denies poor appetite Eyes Reports no additional complaints ENT Denies dysphagia, Denies dizziness, Denies headache(s) and Denies odynophagia Card Denies chest pain, Denies syncope, Denies edema, Denies irregular heart rhythm, Denies lightheadedness and Denies dyspnea Resp Denies cough and Denies dyspnea GI Denies abdominal pain, Denies constipation, Denies dysphagia, Denies diarrhea, Denies nausea, Denies odynophagia and Denies vomiting Reports no additional complaints Musc Reports no additional complaints and Denies abnormal gait Skin/Breast Reports system reviewed and no additional complaints, except as documented Neuro Denies abnormal gait, Denies dizziness, Denies syncope and Denies headache(s) Psych Reports no additional complaints Physical exam (Primary Care) Vital Signs: Last Vital Signs Pulse 84 07/02/24 09:03 BP 124/80 07/02/24 09:03 Pulse Ox 96 07/02/24 09:03 Oxygen Delivery Method Room Air 07/02/24 09:03 BMI result Body Mass Index 26.9 Tobacco/Smoking Status: Tobacco use Status Tobacco use date assessed 07/02/24 07/02/24 09:07 Patient Tobacco Use Status Never used Tobacco 07/02/24 09:07 e-Cigarette/Vaping Use Never Used 07/02/24 09:07 PHQ-9: PHQ-9 Score PHQ-9: Total score 0 07/02/24 09:15 Depression Screening Interpretation: Negative Thrive Assessment: Date of Thrive Assessment Date Thrive assessed 07/02/24 07/02/24 09:07 Currently or been in a relationship where the following occur: No concerns reported Const General: cooperative, healthy appearing, comfortable and no acute distress Orientation/consciousness: patient oriented x3 [facility] Head: Yes normocephalic Ears: hearing grossly normal bilaterally General nose exam: Normal external nose present Eyes General: appearance normal, both eyes and all related structures Conjunctivae: conjunctivae normal Neck Neck: Yes full ROM and Yes no lymphadenopathy Resp Effort & Inspection: normal respiratory effort Auscultation: clear to auscultation bilaterally, no crackles, no rales, no rhonchi and no wheezes Cardio Rate: regular rate Rhythm: regular rhythm Skin General skin exam: no rashes or lesions noted Neuro General: patient oriented x3 Gait exam (Neuro): Normal gait present Extrem General: Yes normal to inspection, Yes full ROM and No edema Psych Affect: normal affect Attitude: cooperative Insight: Good insight present (Psych) Judgement: Good judgement present (Psych) Results AMB Hemoglobin A1c AMB Hemoglobin A1c 9.3 % Last Edit by TOD Michaud on 07/02/24 09:29 Coding Level of Care Code Est Pt Level 4 (70550) Diagnoses Stage 3a chronic kidney disease N18.31 Chronic kidney disease stage 3 subtype: stage 3a (GFR 45-59) Diabetic peripheral neuropathy E11.42 Hyperlipidemia associated with type 2 diabetes mellitus E11.69; E78.5 Diabetes mellitus type 2 with complications E11.8 Fatty liver K76.0 Paroxysmal atrial fibrillation I48.0 Atrial fibrillation type: paroxysmal Microalbuminuria due to type 2 diabetes mellitus E11.29; R80.9 Additional Codes PHQ-9 - 04277 - PHQ-9 Billing: Yes ([id number]) Assessment & Plan Assessment & Plan (1) CKD (chronic kidney disease) stage 3, GFR 30-59 ml/min: Code(s): N18.30 - Chronic kidney disease, stage 3 unspecified Category: Medical Qualifiers: Chronic kidney disease stage 3 subtype: stage 3a (GFR 45-59) Qualified Code(s): N18.31 - Chronic kidney disease, stage 3a Plan: Continue to monitor renal function. Stay well hydrated, avoid kidney irritants and manage blood glucose levels. (2) Diabetic peripheral neuropathy: Code(s): E11.42 - Type 2 diabetes mellitus with diabetic polyneuropathy Category: Medical Plan: Advised good control of blood glucose levels. Patient was referred to computer systems technology instructor at last visit. (3) Hyperlipidemia associated with type 2 diabetes mellitus: Code(s): E11.69 - Type 2 diabetes mellitus with other specified complication; E78.5 - Hyperlipidemia, unspecified Category: Medical Plan: Avoid foods that are high in cholesterol such as red meat, fried foods, eggs and baked goods. Triglyceride goal of less than 150 and LDL goal of less than 100. Continue on rosuvastatin 10. Patient is overdue for blood work and reminded about the blood work today. (4) Diabetes mellitus type 2 with complications: Code(s): E11.8 - Type 2 diabetes mellitus with unspecified complications Category: Medical Plan: Decrease the amount of carbohydrates such as pasta, bread, rice, and potatoes and limit the amount of sweets. Although fruits are generally healthy they should be eaten in moderation as they are still high in sugar. Hemoglobin A1c goal of less than 7%. A1c at last visit 10.1% at her last visit patient was started on Ozempic however this was discontinued due to side effects. The patient's management plan includes optimization of Type 2 Diabetes Mellitus control through adherence to prescribed medication regimens, complemented by intensive lifestyle modifications such as dietary adjustments to reduce carbohydrate intake and enhance physical activity. Plan to add Pioglitazone to medication regimen and follow up in 3 months. Patient would like to avoid insulin at this time. (5) Fatty liver: Comment: noted in hx. Refer to GI for Colon and further mgmt 06/2024 LFTs WNL Code(s): K76.0 - Fatty (change of) liver, not elsewhere classified Category: Medical Plan: Continue to monitor LFTs. Healthy diet and regular exercise is encouraged. (6) A-fib: Comment: noted on exam today, no cards records, not on anti-coag Refer to Cards for further mgmt - no showed On Betablocker Code(s): I48.91 - Unspecified atrial fibrillation Category: Medical Qualifiers: Atrial fibrillation type: paroxysmal Qualified Code(s): I48.0 - Paroxysmal atrial fibrillation Plan: Not appreciated on exam today. Patient continues to decline EKG or cardiology referral stating she does not have a cardiac issue. Discussed with the patient the risks of uncontrolled AFib over time and she understands the risks and continues to decline workup at this time. (7) Microalbuminuria due to type 2 diabetes mellitus: Comment: 07/19/23 micro albumin/cr ratio 62.3 On Jardiance Code(s): E11.29 - Type 2 diabetes mellitus with other diabetic kidney complication; R80.9 - Proteinuria, unspecified Category: Medical Plan: Patient is presently on Synjardy. We will continue to monitor blood work advised good control of diabetes. Plan This note was constructed using voice recognition software. While every effort has been made to ensure accuracy and fabrication supervisor, still areas may have been included sometimes these areas may affect the content or meeting of the given symptoms. Total time spent caring for the patient today was 20 minutes. This includes time spent before the visit reviewing the chart, time spent during the visit, and time spent after the visit and documentation. Patient was informed and verbally consented to the use of an ambient scribe for clinic note documentation during this visit. Orders: Orders AMB Hemoglobin A1c Today E11.8 - Type 2 diabetes mellitus with unspecified complications Complete Blood Count Auto Diff Today Z00.00 - Encounter for general adult medical examination without abnormal findings Referrals Gastroenterology Referral K76.0 - Fatty (change of) liver, not elsewhere classified, Z12.11 - Encounter for screening for malignant neoplasm of colon Medications: New pioglitazone 15 mg PO DAILY 90 tabs 1RF
[2024-07-02 09:03] VITALS: BP 124/80; PULSE 84; O2SAT 96; BMI 26.9
== END 2024-07-02 09:38 | disposition home or self-care (01) ==
DX: E11.42 Type 2 diabetes mellitus with diabetic polyneuropathy (principal); N18.31 Chronic kidney disease, stage 3a; E11.69 Type 2 diabetes mellitus with other specified complication; E11.8 Type 2 diabetes mellitus with unspecified complications; I48.0 Paroxysmal atrial fibrillation; E11.29 Type 2 diabetes mellitus with other diabetic kidney complication; E78.5 Hyperlipidemia, unspecified; K76.0 Fatty (change of) liver, not elsewhere classified; R80.9 Proteinuria, unspecified

== ENCOUNTER → 2024-07-02 08:57 | Outpatient (BNVA) | payer OTHER, SELFPAY | DX: E78.5 Hyperlipidemia, unspecified (principal); I48.91 Unspecified atrial fibrillation; E11.22 Type 2 diabetes mellitus with diabetic chronic kidney disease; E11.42 Type 2 diabetes mellitus with diabetic polyneuropathy; E11.29 Type 2 diabetes mellitus with other diabetic kidney complication; I12.9 Hypertensive chronic kidney disease with stage 1 through stage 4 chronic kidney disease, or unspecified chronic kidney disease; N18.31 Chronic kidney disease, stage 3a; K76.0 Fatty (change of) liver, not elsewhere classified; I48.0 Paroxysmal atrial fibrillation; R80.9 Proteinuria, unspecified | CPT/HCPCS: 83036; 96127 ==

== ENCOUNTER 2024-07-26 15:22 | Outpatient (REF) | payer OTHER, SELFPAY ==
[2024-07-26 15:37] LABS: MANUAL DIFF FLAG NO
[2024-07-26 15:50] LABS: Basophils Percent Auto 0.9 % (0-2); Eosinophils Percent Auto 2.7 % (0-4); Hemoglobin 12.5 g/dl (12.0-16.0); Imm Gran Pct Auto 0.2 % (0.0-0.4); Lymphocytes Percent Auto 36.2 % (20-40); Mean Corpuscular HGB Conc 32.1 g/dl (31.0-35.0); Mean Corpuscular Volume 87.4 fL (80.0-98.0); Mean Platelet Volume 9.4 fL (9.4-12.3); Monocytes Percent Auto 7.4 % (2-11); Neutrophils Percent Auto 52.6 % (45-73); Platelet Count 358 X10*3/uL (160-400); Red Blood Count 4.46 X10*6/uL (4.20-5.50); White Blood Count 9.6 X10*3/uL (4.8-10.8)
[2024-07-26 15:51] LABS: Basophils Absolute Auto 0.1 X10*3/uL (0.0-0.2); Eosinophils Absolute Auto 0.3 X10*3/uL (0.0-0.4); Imm Gran Abs Auto 0.02 X10*3/uL (0.00-0.03); Lymphocytes Absolute Auto 3.5 X10*3/uL (1.2-4.9); Monocytes Absolute Auto 0.7 X10*3/uL (0.1-1.2)
[2024-07-26 16:18] LABS: Alanine Aminotransferase 15 U/L (0-31); Albumin Level 3.9 g/dL (3.5-5.0); Alkaline Phosphatase 76 U/L (39-117); Anion Gap 10 (12-20); Aspartate Amino Transferase 13 U/L (5-31); Bilirubin Total 0.2 mg/dL (0.0-1.0); Blood Urea Nitrogen 23 mg/dL (9-16); Calcium 9.7 mg/dL (8.4-10.2); Carbon Dioxide 28 mmol/L (22-29); Chloride 104 mmol/L (96-108); Cholesterol 212 mg/dL (<200); Estimated Glomerular Filt Rate > 60; Glucose Random 135 mg/dL (60-115); HDL Cholesterol 66 mg/dL (>40); LDL Cholesterol Calculated 134 mg/dL (<100); Potassium 4.2 mmol/L (3.3-5.1); Sodium 138 mmol/L (135-145); Total Protein 7.3 g/dL (6.5-8.0); Triglycerides 62 mg/dL (<150)
[2024-07-26 16:49] LABS: Folate 14.7 ng/mL (> or = 4.0); Vitamin B12 312 pg/mL (200-900)
[2024-07-31 15:58] LABS: VITAMIN D (1,25 OH) D3 39 pg/mL; Vit D (1,25-Dihydroxy) Total 39 pg/mL (18-72); Vitamin D (1,25 OH) D2 <8 pg/mL
== END 2024-07-26 15:23 | disposition home or self-care (01) ==
LOC: HO.LAB 15:22
DX: Z00.00 Encounter for general adult medical examination without abnormal findings (principal); R80.9 Proteinuria, unspecified; E78.5 Hyperlipidemia, unspecified; E11.8 Type 2 diabetes mellitus with unspecified complications; E11.69 Type 2 diabetes mellitus with other specified complication; E11.29 Type 2 diabetes mellitus with other diabetic kidney complication; I12.9 Hypertensive chronic kidney disease with stage 1 through stage 4 chronic kidney disease, or unspecified chronic kidney disease; E11.22 Type 2 diabetes mellitus with diabetic chronic kidney disease; N18.31 Chronic kidney disease, stage 3a
CPT/HCPCS: 36415; 80053; 80061; 82607; 82652; 82746; 85025

== ENCOUNTER 2024-09-14 13:37 | Outpatient (AMB) | payer OTHER, SELFPAY ==
--- NOTE | 2024-09-14 13:42 | A.OFFPC_ITS ---
Vital Signs 09/14/24 13:44 09/14/24 14:12 Height 5 ft 9 in Weight 185 lb 8 oz BMI 27.4 BP 140/60 H 115/58 L Blood Pressure Location Lt brachial Lt brachial Position Sitting Sitting Pulse 79 Pulse Source Pulse Oximeter Temp 97.1 F Temp Source Temporal Artery Scan Pulse Oximetry (%) 97 Oxygen Delivery Method Room Air Intake Visit Reasons: f/u DM and HLD carpal tunnel testing Intake Note: Patient is here to follow up on DM, HLD, Carpal tunnel testing. 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 Name: Cindy ([id number]) Information Interpreted: non-clinical & clinical Shop Helper: Not Required per policy Accompanied by: Self / Same As Patient Allergies No Known Allergies Allergy (Verified 09/14/24 13:53) Medication List - Last Reconciled 09/14/24 by Julia Knott PA-C amitriptyline 25 mg PO BEDTIME ammonium lactate 12% 1 appl topical BID bisoprolol-hydrochlorothiazide 5-6.25 mg 1 tab PO DAILY blood sugar diagnostic (Contour Next Test Strips) As directed, twice per day blood-glucose meter (Contour Next Glucose Meter kit) As directed, test twice per day empagliflozin-metformin 12.5-1,000 mg (Synjardy) 1 tab PO BID glipizide 5 mg PO BID lancets As directed twice per day naproxen 500 mg PO BID PRN pioglitazone 15 mg PO DAILY rosuvastatin 20 mg PO DAILY tapinarof 1% (Vtama) 1 appl topical DAILY Tobacco use date assessed: 09/14/24 Dental Screening Dental Screen Date: 09/14/24 HPI f/u DM and HLD carpal tunnel testing HPI Details 54-year-old female with past medical his tory of AFib, hypertension, fatty liver disease, diabetes mellitus, hyperlipidemia, and chronic kidney disease last seen 06/2024 coming in for follow up.? heel cutter (abiliohector [id number]) used for the duration of this visit. Presenting with follow-up concerns related to hypercholesterolemia, carpal tunnel syndrome, and Type 2 Diabetes Mellitus. Hypercholesterolemia remains an issue with a recent reading of 134 mg/dL, though efforts have been made to manage this through medication adjustment. Symptoms of carpal tunnel syndrome persist with occasional numbness in her fingers, despite past surgical intervention. Her type 2 diabetes management includes recent initiation on pioglitazone, with observable improvements; prior blood sugar levels have been noted as high without specific values recalled. 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 1. Little interest or pleasure in doing things: not at all 2. Feeling down, depressed, or hopeless: not at all 3. Trouble falling or staying asleep, or sleeping too much: not at all 4. Feeling tired or having little energy: not at all 5. Poor appetite or overeating: not at all 6. Feeling bad about yourself - or that you are a failure or have let yourself or your family down: not at all 7. Trouble concentrating on things, such as reading the newspaper or watching television: not at all 8. Moving or speaking so slowly that other people could have noticed. Or the opposite - being so fidgety or restless that you have been moving around a lot more than usual: not at all 9. Thoughts that you would be better off or of hurting yourself in some way: not at all Total score: 0 Depression Screening Interpretation: Negative Depression Screening Done: Yes Source: Developed by Drs. Atilio Mccormack, Christi Galvez, Pio Stewart and colleagues, with an educational sam from [employer]. Thrive Questionnaire Date Thrive assessed: 07/02/24 I am a: Patient What is your living situation today?: I have a steady place to live Within the past 12 months, did the food you bought not last and you didn't have the money to get more?: Sometimes True Within the past 12 months, did you worry whether your food would run out before you got money to buy more?: Sometimes True Do you have trouble paying for medicines?: No Do you have trouble getting transportation to medical appointments?: No Do you have trouble paying your heating and electricity bill?: No Do you have trouble taking care of your child, family member or friend?: No Do you have trouble with day-to-day activities such as bathing, preparing meals, shopping, managing finances, etc.?: No Are you currently unemployed and looking for a job?: No Are you interested in more education?: No Please select the resources that you would like help with: None Currently or been in a relationship where the following occur: No concerns reported THRIVE Score: 2 AUDIT C Alcohol Use Questionnaire (AUDIT-C) 1. How often do you have a drink containing alcohol?: Monthly or less 2. How many drinks containing alcohol do you have on a typical day when you are drinking?: 1 or 2 3. How often do you have six or more drinks on one occasion?: Never Total Score: 1 STEFANO-7 AMB Questionnaire STEFANO-7 Date STEFANO - 7 assessed: 09/14/24 Feeling nervous, anxious, or on edge: 0 = Not at all Not being able to stop or control worryin = Not at all Worrying too much about different things: 0 = Not at all Trouble relaxin = Not at all Being so restless that it is hard to sit still: 0 = Not at all Becoming easily annoyed or irritable: 0 = Not at all Feeling afraid as if something awful might happen: 0 = Not at all Total STEFANO-7 score (0-4 normal; 5-9 mild; 10-14 moderate; 15-21 severe): 0 Source: Developed by Drs. Atilio Mccormack, Christi Galvez, Pio Stewart and colleagues, with an educational sam from [employer]. Review of Systems Const Denies body aches, Denies chills, Denies fever(s), Denies headache(s) and Denies poor appetite Eyes Reports no additional complaints ENT Denies dysphagia, Denies dizziness, Denies headache(s) and Denies odynophagia Card Denies chest pain, Denies syncope, Denies edema, Denies irregular heart rhythm, Denies lightheadedness and Denies dyspnea Resp Denies cough and Denies dyspnea GI Denies abdominal pain, Denies constipation, Denies dysphagia, Denies diarrhea, Denies nausea, Denies odynophagia and Denies vomiting Reports no additional complaints Musc Reports no additional complaints and Denies abnormal gait Skin/Breast Reports system reviewed and no additional complaints, except as documented Neuro Denies abnormal gait, Denies dizziness, Denies syncope and Denies headache(s) Psych Reports no additional complaints Physical exam (Primary Care) Vital Signs: Last Vital Signs Temp 97.1 F 09/14/24 13:44 Pulse 79 09/14/24 13:44 BP 140/60 H 09/14/24 13:44 Pulse Ox 97 09/14/24 13:44 Oxygen Delivery Method Room Air 09/14/24 13:44 BMI result Body Mass Index 27.4 Tobacco/Smoking Status: Tobacco use Status Tobacco use date assessed 09/14/24 09/14/24 13:44 Patient Tobacco Use Status Never used Tobacco 09/14/24 13:43 e-Cigarette/Vaping Use Never Used 09/14/24 13:43 PHQ-9: PHQ-9 Score PHQ-9: Total score 0 09/14/24 13:52 Depression Screening Interpretation: Negative Thrive Assessment: Date of Thrive Assessment Date Thrive assessed 07/02/24 09/14/24 13:43 Currently or been in a relationship where the following occur: No concerns rep orted Const General: cooperative, healthy appearing, comfortable and no acute distress Orientation/consciousness: patient oriented x3 HENMT Head: Yes normocephalic Ears: hearing grossly normal bilaterally General nose exam: Normal external nose present Eyes General: appearance normal, both eyes and all related structures Conjunctivae: conjunctivae normal Neck Neck: Yes full ROM and Yes no lymphadenopathy Resp Effort & Inspection: normal respiratory effort Auscultation: clear to auscultation bilaterally, no crackles, no rales, no rhonchi and no wheezes Cardio Rate: regular rate Rhythm: regular rhythm Skin General skin exam: no rashes or lesions noted Neuro General: patient oriented x3 Gait exam (Neuro): Normal gait present Extrem Other: intact pulses ans sensation in armando UE. Weakness of the right hand mail clerk bills strength General: Yes normal to inspection, Yes full ROM and No edema Psych Affect: normal affect Attitude: cooperative Insight: Good insight present (Psych) Judgement: Good judgement present (Psych) Coding Level of Care Code Est Pt Level 3 (09926) Diagnoses Stage 3a chronic kidney disease N18.31 Chronic kidney disease stage 3 subtype: stage 3a (GFR 45-59) Diabetes mellitus type 2 with complications E11.8 Numbness and tingling in right hand R20.0; R20.2 Hyperlipidemia associated with type 2 diabetes mellitus E11.69; E78.5 HTN, goal below 130/80 I10 Fatty liver K76.0 Assessment & Plan Assessment & Plan (1) CKD (chronic kidney disease) stage 3, GFR 30-59 ml/min: Code(s): N18.30 - Chronic kidney disease, stage 3 unspecified Category: Medical Qualifiers: Chronic kidney disease stage 3 subtype: stage 3a (GFR 45-59) Qualified Code(s): N18.31 - Chronic kidney disease, stage 3a Plan: Continue to monitor renal function. Stay well hydrated, avoid kidney irritants and manage blood glucose levels. (2) Diabetes mellitus type 2 with complications: Code(s): E11.8 - Type 2 diabetes mellitus with unspecified complications Category: Medical Plan: Decrease the amount of carbohydrates such as pasta, bread, rice, and potatoes and limit the amount of sweets. Although fruits are generally healthy they should be eaten in moderation as they are still high in sugar. Not due for A1c today plan to return in two months for A1c. Blood sugars have improved since last visit. (3) Numbness and tingling in right hand: Code(s): R20.0 - Anesthesia of skin; R20.2 - Paresthesia of skin Category: Medical Plan: Order placed for EMG an referral placed for orthopedics today. Advised to use night time splints may use tylenol and ibuprofen prn. (4) Hyperlipidemia associated with type 2 diabetes mellitus: Code(s): E11.69 - Type 2 diabetes mellitus with other specified complication; E78.5 - Hyperlipidemia, unspecified Category: Medical Plan: Avoid foods that are high in cholesterol such as red meat, fried foods, eggs and baked goods. Triglyceride goal of less than 150 and LDL goal of less than 100. Continue on rosuvastatin 20 mg. repeat blood work 2 months. (5) HTN, goal below 130/80: Code(s): I10 - Essential (primary) hypertension Category: Medical Plan: Continue on current blood pressure medication. Avoid salt intake and encourage healthy diet and regular exercise. (6) Fatty liver: Comment: noted in hx. Refer to GI for Colon and further mgmt 06/2024 LFTs WNL Code(s): K76.0 - Fatty (change of) liver, not elsewhere classified Category: Medical Plan: Continue to monitor LFTs. Healthy diet and regular exercise is encouraged. Plan The patient will continue on her current regimen for hypercholesterolemia with increase in statin dosage, reassessment of cholesterol levels is planned. For carpal tunnel syndrome, referrals for orthopedic evaluation and additional nerve studies have been initiated. Diabetes management will continue with pioglitazone and the monitoring of blood glucose, and follow-up fasting labs and A1c testing is planned. Normal liver function was noted, reassuring the patient about medication safety. This note was constructed using voice recognition software. While every effort has been made to ensure accuracy and long wall shear operator, still areas may have been included sometimes these areas may affect the content or meeting of the given symptoms. Total time spent caring for the patient today was twenty minutes. This includes time spent before the visit reviewing the chart, time spent during the visit, and time spent after the visit and documentation. Patient was informed and verbally consented to the use of an ambient scribe for clinic note documentation during this visit. Orders: Orders NE nerve conduction velocity Today R20.0 - Anesthesia of skin, R20.2 - Paresthesia of skin Hemoglobin A1c 1 Month E11.65 - Type 2 diabetes mellitus with hyperglycemia NE electromyogram (EMG) Today R20.0 - Anesthesia of skin, R20.2 - Paresthesia of skin Referrals Orthopedics Referral R20.0 - Anesthesia of skin, R20.2 - Paresthesia of skin Medications: Refilled pioglitazone 15 mg PO DAILY 90 tabs 1RF
[2024-09-14 13:44] VITALS: BP 140/60; PULSE 79; TEMP 36.2; O2SAT 97; BMI 27.4
[2024-09-14 14:12] VITALS: BP 115/58
== END 2024-09-14 14:17 | disposition home or self-care (01) ==
LOC: HO.HMCH 13:38
DX: I12.9 Hypertensive chronic kidney disease with stage 1 through stage 4 chronic kidney disease, or unspecified chronic kidney disease (principal); N18.31 Chronic kidney disease, stage 3a; E11.8 Type 2 diabetes mellitus with unspecified complications; E11.69 Type 2 diabetes mellitus with other specified complication; R20.0 Anesthesia of skin; R20.2 Paresthesia of skin; E78.5 Hyperlipidemia, unspecified; K76.0 Fatty (change of) liver, not elsewhere classified

== ENCOUNTER 2024-11-05 07:58 | Outpatient (REF) | payer OTHER, SELFPAY ==
[2024-11-05 08:49] LABS: Hemoglobin A1C 261.0828 umol/L; Total Hemoglobin (HGBA1C) 3501.4410 umol/L
[2024-11-05 09:23] LABS: Cholesterol 196 mg/dL (<200); HDL Cholesterol 65 mg/dL (>40); Triglycerides 62 mg/dL (<150)
== END 2024-11-05 07:59 | disposition home or self-care (01) ==
LOC: HO.LAB 07:58
DX: E11.65 Type 2 diabetes mellitus with hyperglycemia (principal); E78.00 Pure hypercholesterolemia, unspecified
CPT/HCPCS: 36415; 80061; 83036

== ENCOUNTER 2024-11-06 08:03 | Outpatient (REF) | payer OTHER, SELFPAY ==
--- NOTE | 2024-11-06 08:06 | EMG_ITS ---
Please see the attached neurophysiology report MTDD
== END 2024-11-06 08:04 | disposition home or self-care (01) ==
LOC: HO.NEURO 08:03
DX: G56.11 Other lesions of median nerve, right upper limb (principal); R20.0 Anesthesia of skin; R20.2 Paresthesia of skin
CPT/HCPCS: 95886; 95910

== ENCOUNTER → 2024-11-06 08:06 | Outpatient (BNV) | payer OTHER, SELFPAY | PROVIDERS: Visit Provider Psychiatry & Neurology Neurology | DX: G56.01 Carpal tunnel syndrome, right upper limb (principal) | CPT/HCPCS: 95886; 95910 ==

== ENCOUNTER 2024-11-08 14:53 | Outpatient (AMB) | payer OTHER, SELFPAY ==
--- NOTE | 2024-11-08 15:29 | MHC.OFFVIS ---
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 States she is having numbness and tingling for the last 5 years and has worsen since. States she has tried and failed injection and the use of braces at night time, and is constant during the day. Patient would like to discuss surgery. 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 States she is having numbness and tingling for the last 5 years and has worsen since. States she has tried and failed injection and the use of braces at night time, and is constant during the day. Patient would like to discuss surgery. 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 Good APB muscle firing and good finger cross. Vascular: Capillary refill brisk. ROM: Patient can make a fist and extend all their digits. Skin: No lacerations or abrasions noted. General: No ecchymosis. No erythema or evidence of infection. [] Assessment & Plan Assessment & Plan (1) Bilateral carpal tunnel syndrome: Code(s): G56.03 - Carpal tunnel syndrome, bilateral upper limbs Category: Medical Plan 1. Bilateral carpal tunnel syndrome Symptoms constant, daily, worse at night Patient is educated about this condition Patient is educated about the treatment options available Patient states she is interested in surgical intervention at this time However, as the patient's last A1c was 9.0, unfortunately this is too high for pursuit of surgical intervention due to risk of wound healing delay is Patient states understanding of this Patient will follow-up if her A1c is 8.0 or below for discussion of surgical intervention, sooner with any acute concerns Coding Level of Care Code New Pt Level 3 (47588) Diagnoses Bilateral carpal tunnel syndrome G56.03
[2024-11-08 15:31] VITALS: BMI 27.9
== END 2024-11-08 15:48 | disposition home or self-care (01) ==
LOC: HO.HOS 14:54
DX: G56.03 Carpal tunnel syndrome, bilateral upper limbs (principal)
CPT/HCPCS: 99203

== ENCOUNTER 2024-11-13 14:46 | Outpatient (AMB) | payer OTHER, SELFPAY ==
--- NOTE | 2024-11-13 14:48 | MHC.OFFVIS ---
Vital Signs 11/13/24 15:06 Height 5 ft 9 in Weight 186 lb BMI 27.5 BP 122/68 Blood Pressure Location Rt brachial Position Sitting Pulse 76 Pulse Source Pulse Oximeter Pulse Oximetry (%) 99 Oxygen Delivery Method Room Air Intake Visit Reasons: colo screening fatty liver Intake Note: New pt for initial colo screening + fatty liver. CC: C.O. LUQ pain, nausea, intermittently. Pt reports sx are worse within the last week and seem to be the worst at night. Water Resources Business Segment Leader Required: Yes Water Resources Business Segment Leader Services: Water Resources Business Segment Leader Present Water Resources Business Segment Leader Name: Dania [id number] + [facility] [place] Information Interpreted: clinical only Accompanied by: Self / Same As Patient Allergies No Known Allergies Allergy (Verified 11/08/24 15:36) HPI HPI colo screening fatty liver: Details: 54 year old? female with past medical history of diabetes, bilateral carpal tunnel syndrome, psoriasis is here today for pre colonoscopy screening.? Patient was sent to us by her PCP.? This is her first colonoscopy screening.? Left upper quadrant pain for years. Patient was told that this pain is related to gas. Patient is moving her bowels daily. Denies any personal or family history of gastrointestinal disease, colon polyps, or CRC.? Denies history of difficulty with sedation or anesthesia in the past.? Negative for history of sleep apnea.? Denies any history of cardiac, renal, pulmonary, or hepatic disease.?? No history of infectious? diseases like hepatitis A, B, C, HIV or tuberculosis.? Patient is not on any anticoagulation [facility] Medical History (Updated 11/13/24 @ 15:36 by Julia Knott PA-C) A-fib Cholesterol calculus of gallbladder Fatty (change of) liver, not elsewhere classified Surgical History No pertinent past surgical history Family History Mother Diabetes Social History Household Members: Spouse Housing: Apartment Alcohol intake: current Alcohol intake frequency: holidays/special occasions only Patient Tobacco Use Status: Never used Tobacco e-Cigarette/Vaping Use: Never Used Second Hand Smoke Exposure: No service: No Current occupational status: employed 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 Current occupational exposures/hazards: No Cognitive needs: No Hearing needs: No Vision needs: Yes (Glasses) Review of Systems Const Denies weight gain and Denies weight loss ENT Reports no additional complaints, Denies dysphagia and Denies odynophagia Card Reports no additional complaints Resp Reports no additional complaints GI Denies abdominal pain, Denies belching, Denies melena, Denies bloating, Denies change in bowel habits, Denies dysphagia, Denies excessive flatus, Denies dyspepsia, Denies heartburn, Denies diarrhea, Denies loose stools, Denies nausea, Denies odynophagia and Denies vomiting Musc Reports no additional complaints Neuro Reports no additional complaints Psych Reports no additional complaints Endo Reports no additional complaints Physical Exam Vital Signs: Last Vital Signs Pulse 76 11/13/24 15:06 BP 122/68 11/13/24 15:06 Pulse Ox 99 11/13/24 15:06 Oxygen Delivery Method Room Air 11/13/24 15:06 BMI result Body Mass Index 27.5 Const General: healthy appearing, no acute distress and well developed Nutritional Appearance: well nourished Orientation/consciousness: patient oriented x3 Resp Effort & Inspection: normal respiratory effort, able to speak in complete sentences, no tracheal deviation and symmetric chest movement Auscultation: clear to auscultation bilaterally Cardio Rate: regular rate GI Inspection: Yes normal to inspection and No distended Palpation (GI): Soft to palpation, not firm, nontender and No hepatosplenomegaly present Auscultation: normal bowel sounds General: Yes no CVA tenderness Back/Spine/Pelvis Back: no CVA tenderness Skin General skin exam: elasticity normal, turgor normal and dry skin Neuro General: patient oriented x3 Psych Appearance: grossly normal Mental Status: mental status grossly normal Assessment & Plan Assessment & Plan (1) Screen for colon cancer: Code(s): Z12.11 - Encounter for screening for malignant neoplasm of colon Category: Medical Plan Patient denies any GI, cardiac or respiratory symptoms.? Denies any issues with anesthesia in the past.? Denies any history of sleep apnea.? No history infectious diseases in the past or present.? Not on any anticoagulation therapy.? No family or personal history of colon cancer or polyps.? Patient denies melena, hematochezia, unintentional weight loss or ribbon like stools.? Discussed at length the pre-procedure,? prep, diet & medications as well as what to expect prior, during and after the procedure.?? Stressed the importance of good bowel prep.? Recommended the use of Vaseline or Calmoseptine OTC & baby wipes with bowel movements to promote comfort.? ?Patient verbalizes understanding and agrees to plan of care.? She was given the opportunity to ask questions and all questions answered.? We will see her after the procedure.? Medications: New bisacodyl (Dulcolax (bisacodyl)) take 4 tabs at noon the day before your colonoscopy 20 mg (4 x 5 mg) PO ONCE 4 tabs 0RF constipation 1 day Z12.11 - Encounter for screening for malignant neoplasm of colon polyethylene glycol 3350 (Miralax) As directed by gastroenterology department at [facility] 238 grams PO ONCE 238 grams 0RF Z12.11 - Encounter for screening for malignant neoplasm of colon Coding Level of Care Code New Pt Level 3 (37184) Diagnoses Screen for colon cancer Z12.11 Time Spent (min) 40 Comment 30 minutes spent with patient and additional 10 minutes spent reviewing her records
[2024-11-13 15:06] VITALS: BP 122/68; PULSE 76; O2SAT 99; BMI 27.5
== END 2024-11-13 15:46 | disposition home or self-care (01) ==
LOC: HO.HGI 14:47
PROVIDERS: Visit Provider Nurse Practitioner Family
DX: Z01.818 Encounter for other preprocedural examination (principal); Z12.11 Encounter for screening for malignant neoplasm of colon
CPT/HCPCS: 99203

== ENCOUNTER 2024-11-19 10:36 | Outpatient (AMB) | payer OTHER, SELFPAY ==
--- NOTE | 2024-11-19 10:44 | MHC.PC.OV ---
Vital Signs 11/19/24 10:45 Height 5 ft 9 in Weight 190 lb 2 oz BMI 28.1 BP 124/60 Blood Pressure Location Lt brachial Position Sitting Pulse 80 Pulse Source Pulse Oximeter Temp Source Temporal Artery Scan Pulse Oximetry (%) 97 Oxygen Delivery Method Room Air Intake Visit Reasons: 2 month f/u Operating Room Scheduler Required: Yes Operating Room Scheduler Language: Cymraes Accompanied by: Self / Same As Patient Allergies No Known Allergies Allergy (Verified 11/19/24 10:49) Medication List - Last Reconciled 11/19/24 by Julia Knott PA-C amitriptyline 25 mg PO BEDTIME ammonium lactate 12% 1 appl topical BID bisacodyl (Dulcolax (bisacodyl)) 20 mg (4 x 5 mg) PO ONCE 1 day bisoprolol-hydrochlorothiazide 5-6.25 mg 1 tab PO DAILY blood sugar diagnostic (Contour Next Test Strips) As directed, twice per day blood-glucose meter (Contour Next Glucose Meter kit) As directed, test twice per day empagliflozin-metformin 12.5-1,000 mg (Synjardy) 1 tab PO BID glipizide 5 mg PO BID lancets As directed twice per day naproxen 500 mg PO BID PRN pioglitazone 15 mg PO DAILY polyethylene glycol 3350 (Miralax) 238 grams PO ONCE rosuvastatin 20 mg PO DAILY tapinarof 1% (Vtama) 1 appl topical DAILY Tobacco use date assessed: 11/19/24 Dental Screening Dental Screen Date: 11/19/24 Did you have a dental visit in the last 12 months?: No Did you have a dental problem in the last 6 months where you did not have access to dental care?: No Was dental information given to patient?: No HPI 2 month f/u HPI Details 54-year-old female with past medical history of AFib, hypertension, fatty liver disease, diabetes mellitus, hyperlipidemia, and chronic kidney disease last seen 08/2024 coming in for follow up. In review of the notes, patient was seen by GI 10/2024 for pre screening for colonoscopy. Seen by orthopedics 11/08/2024 for carpal tunnel A1c 9.0 and no intervention available at this time. associate editor May [id number] was used for the duration of this visit. Presenting with diabetes mellitus, hyperlipidemia, and carpal tunnel syndrome. The patient's hemoglobin A1c is elevated at 9.0%, which has decreased slightly from a previous level of 9.3%. The patient reports inconsistent medication adherence, particularly with pioglitazone, glipizide, and Synjardy, due to work-related stress and irregular eating habits. The patient's LDL cholesterol is 119 mg/dL, above the target of less than 100 mg/dL. The patient has been out of rosuvastatin for more than 15 days, which may have contributed to the elevated cholesterol levels. The patient experiences significant discomfort in the hand, affecting sleep, and has not found relief with a splint. [facility] Medical History (Updated 11/19/24 @ 11:32 by Julia Knott PA-C) CKD (chronic kidney disease) stage 3, GFR 30-59 ml/min A-fib Cholesterol calculus of gallbladder Fatty (change of) liver, not elsewhere classified Surgical History No pertinent past surgical history Family History Mother Diabetes Social History Household Members: Spouse Housing: Apartment Alcohol intake: current Alcohol intake frequency: holidays/special occasions only Patient Tobacco Use Status: Never used Tobacco e-Cigarette/Vaping Use: Never Used Second Hand Smoke Exposure: No service: No Current occupational status: employed 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 Current occupational exposures/hazards: No Cognitive needs: No Hearing needs: No Vision needs: Yes (Glasses) Questionnaire Thrive Questionnaire Date Thrive assessed: 11/19/24 I am a: Patient What is your living situation today?: I have a steady place to live Within the past 12 months, did the food you bought not last and you didn't have the money to get more?: Sometimes True Within the past 12 months, did you worry whether your food would run out before you got money to buy more?: Sometimes True Do you have trouble paying for medicines?: No Do you have trouble getting transportation to medical appointments?: No Do you have trouble paying your heating and electricity bill?: No Do you have trouble taking care of your child, family member or friend?: No Do you have trouble with day-to-day activities such as bathing, preparing meals, shopping, managing finances, etc.?: No Are you currently unemployed and looking for a job?: No Are you interested in more education?: No Please select the resources that you would like help with: None Currently or been in a relationship where the following occur: No concerns reported THRIVE Score: 2 STEFANO-7 AMB Questionnaire STEFANO-7 Date STEFANO - 7 assessed: 11/19/24 Source: Developed by Drs. Atilio Mccormack, Christi Galvez, Pio Stewart and colleagues, with an educational sam from [employer]. Review of Systems Const Denies body aches, Denies chills, Denies fever(s), Denies headache(s) and Denies poor appetite Eyes Reports no additional complaints ENT Denies dizziness and Denies headache(s) Card Denies chest pain, Denies syncope, Denies lightheadedness and Denies dyspnea Resp Denies dyspnea GI Denies nausea and Denies vomiting Reports no additional complaints Musc Reports no additional complaints and Denies abnormal gait Skin/Breast Reports system reviewed and no additional complaints, except as documented Neuro Denies abnormal gait, Denies dizziness, Denies syncope and Denies headache(s) Psych Reports no additional complaints Physical exam (Primary Care) Vital Signs: Last Vital Signs Pulse 80 11/19/24 10:45 BP 124/60 11/19/24 10:45 Pulse Ox 97 11/19/24 10:45 Oxygen Delivery Method Room Air 11/19/24 10:45 BMI result Body Mass Index 28.1 Tobacco/Smoking Status: Tobacco use Status Tobacco use date assessed 11/19/24 11/19/24 10:47 Patient Tobacco Use Status Never used Tobacco 11/19/24 10:47 e-Cigarette/Vaping Use Never Used 11/19/24 10:47 Thrive Assessment: Date of Thrive Assessment Date Thrive assessed 11/19/24 11/19/24 10:47 Currently or been in a relationship where the following occur: No concerns reported Const General: cooperative, healthy appearing, comfortable and no acute distress Orientation/consciousness: patient oriented x3 HENMT Head: Yes normocephalic Ears: hearing grossly normal bilaterally General nose exam: Normal external nose present Eyes General: appearance normal, both eyes and all related structures Conjunctivae: conjunctivae normal Neck Neck: Yes full ROM and Yes no lymphadenopathy Resp Effort & Inspection: normal respiratory effort Auscultation: clear to auscultation bilaterally, no crackles, no rales, no rhonchi and no wheezes Cardio Rate: regular rate Rhythm: regular rhythm Skin General skin exam: no rashes or lesions noted Neuro General: patient oriented x3 Gait exam (Neuro): Normal gait present Extrem General: Yes normal to inspection, Yes full ROM and No edema Psych Affect: normal affect Attitude: cooperative Insight: Good insight present (Psych) Judgement: Good judgement present (Psych) Coding Level of Care Code Est Pt Level 4 (12359) Diagnoses Diabetes mellitus type 2 with complications E11.8 Numbness and tingling in right hand R20.0; R20.2 Hyperlipidemia associated with type 2 diabetes mellitus E11.69; E78.5 HTN, goal below 130/80 I10 Fatty liver K76.0 Irregular heart rhythm I49.9 Assessment & Plan Assessment & Plan (1) Diabetes mellitus type 2 with complications: Code(s): E11.8 - Type 2 diabetes mellitus with unspecified complications Category: Medical Plan: Decrease the amount of carbohydrates such as pasta, bread, rice, and potatoes and limit the amount of sweets. Although fruits are generally healthy they should be eaten in moderation as they are still high in sugar. A1c 9.0% on last blood work. Plan to increase the Pioglitazone to 30 mg at this time as she is not interested in injections. (2) Numbness and tingling in right hand: Code(s): R20.0 - Anesthesia of skin; R20.2 - Paresthesia of skin Category: Medical Plan: Patient continues to have numbness and tingling as well as pain in the right hand. Advised to use Tylenol and ibuprofen as needed. Continue to follow with ortho and plan to continue to work on A1c so patient can receive injections and possible surgery (3) Hyperlipidemia associated with type 2 diabetes mellitus: Code(s): E11.69 - Type 2 diabetes mellitus with other specified complication; E78.5 - Hyperlipidemia, unspecified Category: Medical Plan: Avoid foods that are high in cholesterol such as red meat, fried foods, eggs and baked goods. Triglyceride goal of less than 150 and LDL goal of less than 100. Last LDL not within goal however patient has been out of the Rosuvastatin for several weeks. Plan to repeat labs in 3 months. (4) HTN, goal below 130/80: Code(s): I10 - Essential (primary) hypertension Category: Medical Plan: Continue on current blood pressure medication. Avoid salt intake and encourage healthy diet and regular exercise. (5) Fatty liver: Comment: noted in hx. Refer to GI for Colon and further mgmt 06/2024 LFTs WNL Code(s): K76.0 - Fatty (change of) liver, not elsewhere classified Category: Medical Plan: Continue to monitor LFTs. Healthy diet and regular exercise is encouraged. (6) Irregular heart rhythm: Comment: Noted on exam by Katie Panda patient refusing workup Code(s): I49.9 - Cardiac arrhythmia, unspecified Category: Medical Plan: Appreciated on exam with her last PCP. Last few exams this finding was not appreciated. Plan to obtain EKG for further evaluation. Plan The plan includes increasing the dose of pioglitazone to 30 mg to better manage the patient's blood glucose levels. The patient is advised to take two 15 mg tablets of pioglitazone until the new prescription is filled. The rosuvastatin prescription will be refilled, and the patient is instructed to resume taking it to manage hyperlipidemia. Follow-up blood work is scheduled in three months to reassess A1c and cholesterol levels, ensuring fasting for 8 to 10 hours prior to testing. The patient is encouraged to reduce the intake of sweets, breads, pastas, and rice to help lower blood glucose levels. Pain management for carpal tunnel syndrome is discussed, but the patient prefers to avoid additional medication, focusing instead on controlling blood glucose as the primary intervention. This note was constructed using voice recognition software. While every effort has been made to ensure accuracy and independent video producer, still areas may have been included sometimes these areas may affect the content or meeting of the given symptoms. Total time spent caring for the patient today was 20 minutes. This includes time spent before the visit reviewing the chart, time spent during the visit, and time spent after the visit and documentation. Patient was informed and verbally consented to the use of an ambient scribe for clinic note documentation during this visit. Orders: Orders Lipid Panel 3 Months E78.00 - Pure hypercholesterolemia, unspecified Hemoglobin A1c 3 Months E11.65 - Type 2 diabetes mellitus with hyperglycemia ECG 12 lead EKG Today I49.9 - Cardiac arrhythmia, unspecified Medications: New pioglitazone 30 mg PO DAILY 90 tabs 0RF Refilled naproxen 500 mg PO BID PRN 30 tabs 0RF pain rosuvastatin 20 mg PO DAILY 90 tabs 1RF Discontinued pioglitazone Discontinued Reason: Patient no longer taking 15 mg PO DAILY 90 tabs 1RF
[2024-11-19 10:45] VITALS: BP 124/60; PULSE 80; O2SAT 97; BMI 28.1
== END 2024-11-19 11:38 | disposition home or self-care (01) ==
LOC: HO.HMCH 10:36
DX: E11.8 Type 2 diabetes mellitus with unspecified complications (principal); R20.0 Anesthesia of skin; R20.2 Paresthesia of skin; E11.69 Type 2 diabetes mellitus with other specified complication; E78.5 Hyperlipidemia, unspecified; I10 Essential (primary) hypertension; K76.0 Fatty (change of) liver, not elsewhere classified; I49.9 Cardiac arrhythmia, unspecified

== ENCOUNTER 2024-12-31 09:13 | Outpatient (REF) | payer OTHER, SELFPAY ==
[2024-12-31 09:31] LABS: MANUAL DIFF FLAG NO
[2024-12-31 10:06] LABS: Hematocrit 40.9 % (37.0-47.0); Hemoglobin 13.3 g/dl (12.0-16.0); Imm Gran Abs Auto 0.01 X10*3/uL (0.00-0.03); Imm Gran Pct Auto 0.1 % (0.0-0.4); Lymphocytes Absolute Auto 3.0 X10*3/uL (1.2-4.9); Mean Corpuscular HGB Conc 32.5 g/dl (31.0-35.0); Mean Corpuscular Hemoglobin 28.1 pg (27.0-33.0); Mean Corpuscular Volume 86.5 fL (80.0-98.0); NRBC Abs Auto 0.000 X10*3/uL (0.0-0.012); NRBC Pct Auto 0.0 /100WBC (0.0-0.2); Platelet Count 364 X10*3/uL (160-400); Red Blood Count 4.73 X10*6/uL (4.20-5.50); White Blood Count 8.3 X10*3/uL (4.8-10.8)
[2024-12-31 10:36] LABS: Alanine Aminotransferase 21 U/L (0-31); Albumin Level 4.4 g/dL (3.5-5.0); Alkaline Phosphatase 68 U/L (39-117); Anion Gap 12 (12-20); Aspartate Amino Transferase 16 U/L (5-31); Blood Urea Nitrogen 23 mg/dL (9-16); Calcium 10.8 mg/dL (8.4-10.2); Carbon Dioxide 28 mmol/L (22-29); Chloride 107 mmol/L (96-108); Cholesterol 147 mg/dL (<200); Estimated Glomerular Filt Rate > 60; HDL Cholesterol 56 mg/dL (>40); Potassium 4.2 mmol/L (3.3-5.1); Sodium 143 mmol/L (135-145); Total Protein 7.9 g/dL (6.5-8.0); Triglycerides 82 mg/dL (<150)
[2024-12-31 10:54] LABS: HBc Num1 0.07 S/CO (0.00-0.79); HBsAGNum1 0.43 S/CO (0.00-0.99); Hepatitis B Surface Antigen Negative (Negative); ~HepC Num1 0.07 S/CO (0.00-0.79); ~Hepatitis C Antibody Nonreactive (Nonreactive)
[2024-12-31 11:25] LABS: Reflex LDLD? No
[2025-01-03 02:54] LABS: TS Negative Control Passed; TS Panel A 0; TS Panel B 2; TS Positive Control Passed; TSpotTB Negative (Negative)
== END 2024-12-31 09:14 | disposition home or self-care (01) ==
LOC: HO.LAB 09:13
PROVIDERS: Visit Provider Dermatology
DX: Z11.59 Encounter for screening for other viral diseases (principal); L40.0 Psoriasis vulgaris
CPT/HCPCS: 36415; 80048; 80061; 80076; 85025; 86481; 86704; 86803; 87340

== ENCOUNTER → 2025-02-18 09:58 | Outpatient (REF) | payer OTHER, SELFPAY ==
--- NOTE | 2025-02-18 10:07 | ECG_ITS ---
Test Reason : I49.9 - Cardiac arrhythmia, unspecified Blood Pressure : */* mmHG Vent. Rate : 70 BPM Atrial Rate : 70 BPM P-R Int : 150 ms QRS Dur : 82 ms QT Int : 374 ms P-R-T Axes : 47 32 51 degrees QTcB Int : 403 ms Normal sinus rhythm Normal ECG No previous ECGs available Referred By: Julia Knott Electronically Signed By: BELLE DAVIS
[2025-02-18 11:13] LABS: Cholesterol 142 mg/dL (<200); HDL Cholesterol 57 mg/dL (>40); Triglycerides 49 mg/dL (<150)
== END ==
LOC: HO.CARD 09:58
DX: E11.65 Type 2 diabetes mellitus with hyperglycemia (principal); E78.00 Pure hypercholesterolemia, unspecified; I49.9 Cardiac arrhythmia, unspecified
CPT/HCPCS: 36415; 80061; 83036; 93005

== ENCOUNTER → 2025-02-18 10:07 | Outpatient (BNV) | payer OTHER, SELFPAY | PROVIDERS: Visit Provider Internal Medicine | DX: I49.9 Cardiac arrhythmia, unspecified (principal) | CPT/HCPCS: 93010 ==

== ENCOUNTER 2025-02-25 08:31 | Outpatient (AMB) | payer OTHER, SELFPAY ==
[2025-02-25 08:43] VITALS: BP 138/62; PULSE 81; TEMP 36.2; O2SAT 96; BMI 29.7
--- NOTE | 2025-02-25 08:43 | A.OFFPC_ITS ---
Vital Signs 02/25/25 08:43 Height 5 ft 9 in Weight 201 lb 4 oz BMI 29.7 BP 138/62 Blood Pressure Location Lt brachial Position Sitting Pulse 81 Pulse Source Pulse Oximeter Temp 97.1 F Temp Source Temporal Artery Scan Pulse Oximetry (%) 96 Oxygen Delivery Method Room Air Intake Visit Reasons: f/u DM Accordion Tuner Required: Yes Accordion Tuner Language: St Helenian Accompanied by: Self / Same As Patient Allergies No Known Allergies Allergy (Verified 02/25/25 09:02) Medication List - Last Reconciled 02/25/25 by Julia Knott PA-C amitriptyline 25 mg PO BEDTIME ammonium lactate 12% 1 appl topical BID bisacodyl (Dulcolax (bisacodyl)) 20 mg (4 x 5 mg) PO ONCE 1 day bisoprolol-hydrochlorothiazide 5-6.25 mg 1 tab PO DAILY blood sugar diagnostic (Contour Next Test Strips) As directed, twice per day blood-glucose meter (Contour Next Glucose Meter kit) As directed, test twice per day empagliflozin-metformin 12.5-1,000 mg (Synjardy) 1 tab PO BID glipizide 5 mg PO BID lancets As directed twice per day naproxen 500 mg PO BID PRN pioglitazone 30 mg PO DAILY polyethylene glycol 3350 (Miralax) 238 grams PO ONCE rosuvastatin 20 mg PO DAILY tapinarof 1% (Vtama) 1 appl topical DAILY Tobacco use date assessed: 02/25/25 Dental Screening Dental Screen Date: 02/25/25 Did you have a dental visit in the last 12 months?: No Did you have a dental problem in the last 6 months where you did not have access to dental care?: No Was dental information given to patient?: No HPI f/u DM HPI Details 54-year-old female with past medical his tory of AFib, hypertension, fatty liver disease, diabetes mellitus, hyperlipidemia, and chronic kidney disease last seen 10/2024 coming in for follow up.? spanish interpreter/translator Eusebio [id number] was used for the duration of this visit. The patient is a 54-year-old female presenting for a follow-up on her chronic conditions, including type 2 diabetes and hyperlipidemia. Noted 11 lb weight gain since last visit attributed to diet and inactivity. Her hemoglobin A1c has shown improvement, decreasing from a prior level of 9% to a current level of 8%. She is currently taking glipizide, Synjardy, and pioglitazone for her diabetes, and is reportedly adherent to her cholesterol medication. Her diet includes excessive consumption of rice. The patient also has a history of severe hand numbness, which has become so debilitating that she can no longer work and her sleep is disrupted. She previously saw an alternative financing specialist but could not undergo surgery due to her blood sugar being too high. She reports using splints at night, but they no longer provide relief. [facility] Medical History CKD (chronic kidney disease) stage 3, GFR 30-59 ml/min A-fib Cholesterol calculus of gallbladder Fatty (change of) liver, not elsewhere classified Surgical History No pertinent past surgical history Family History Mother Diabetes Social History Household Members: Spouse Housing: Apartment Alcohol intake: current Alcohol intake frequency: holidays/special occasions only Patient Tobacco Use Status: Never used Tobacco Tobacco use type: Cigarette e-Cigarette/Vaping Use: Never Used Second Hand Smoke Exposure: No service: No Current occupational status: employed 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 1. Little interest or pleasure in doing things: not at all 2. Feeling down, depressed, or hopeless: not at all 3. Trouble falling or staying asleep, or sleeping too much: not at all 4. Feeling tired or having little energy: not at all 5. Poor appetite or overeating: not at all 6. Feeling bad about yourself - or that you are a failure or have let yourself or your family down: not at all 7. Trouble concentrating on things, such as reading the newspaper or watching television: not at all 8. Moving or speaking so slowly that other people could have noticed. Or the opposite - being so fidgety or restless that you have been moving around a lot more than usual: not at all 9. Thoughts that you would be better off or of hurting yourself in some way: not at all Total score: 0 Depression Screening Interpretation: Negative Depression Screening Done: Yes Source: Developed by Drs. Atilio Mccormack, Christi Galvez, Pio Stewart and colleagues, with an educational sam from [email or web address]. Thrive Questionnaire Date Thrive assessed: 02/25/25 I am a: Patient What is your living situation today?: I have a steady place to live Within the past 12 months, did the food you bought not last and you didn't have the money to get more?: Sometimes True Within the past 12 months, did you worry whether your food would run out before you got money to buy more?: Sometimes True Do you have trouble paying for medicines?: No Do you have trouble getting transportation to medical appointments?: No Do you have trouble paying your heating and electricity bill?: No Do you have trouble taking care of your child, family member or friend?: No Do you have trouble with day-to-day activities such as bathing, preparing meals, shopping, managing finances, etc.?: No Are you currently unemployed and looking for a job?: No Are you interested in more education?: No Please select the resources that you would like help with: None Currently or been in a relationship where the following occur: No concerns reported THRIVE Score: 2 AUDIT C Alcohol Use Questionnaire (AUDIT-C) 1. How often do you have a drink containing alcohol?: Monthly or less 2. How many drinks containing alcohol do you have on a typical day when you are drinking?: 1 or 2 3. How often do you have six or more drinks on one occasion?: Never Total Score: 1 STEFANO-7 AMB Questionnaire STEFANO-7 Date STEFANO - 7 assessed: 02/25/25 Source: Developed by Drs. Atilio Mccormack, Christi Galvez, Pio Stewart and colleagues, with an educational sam from [email or web address]. Review of Systems Const Denies body aches, Denies chills, Denies fever(s), Denies headache(s) and Denies poor appetite Eyes Reports no additional complaints ENT Denies dizziness and Denies headache(s) Card Denies chest pain, Denies syncope, Denies edema, Denies irregular heart rhythm, Denies lightheadedness and Denies dyspnea Resp Denies cough and Denies dyspnea GI Denies nausea and Denies vomiting Reports no additional complaints Musc Reports no additional complaints and Denies abnormal gait Skin/Breast Reports system reviewed and no additional complaints, except as documented Neuro Denies abnormal gait, Denies dizziness, Denies syncope and Denies headache(s) Psych Reports no additional complaints Physical exam (Primary Care) Vital Signs: Last Vital Signs Temp 97.1 F 02/25/25 08:43 Pulse 81 02/25/25 08:43 BP 138/62 02/25/25 08:43 Pulse Ox 96 02/25/25 08:43 Oxygen Delivery Method Room Air 02/25/25 08:43 BMI result Body Mass Index 29.7 Tobacco/Smoking Status: Tobacco use Status Tobacco use date assessed 02/25/25 02/25/25 08:45 Patient Tobacco Use Status Never used Tobacco 02/25/25 08:45 Tobacco use type Cigarette 02/25/25 08:49 e-Cigarette/Vaping Use Never Used 02/25/25 08:45 PHQ-9: PHQ-9 Score PHQ-9: Total score 0 02/25/25 09:23 Depression Screening Interpretation: Negative Thrive Assessment: Date of Thrive Assessment Date Thrive assessed 02/25/25 02/25/25 08:45 Currently or been in a relationship where the following occur: No concerns reported Const General: cooperative, healthy appearing, comfortable and no acute distress Orientation/consciousness: patient oriented x3 [facility] Head: Yes normocephalic Ears: hearing grossly normal bilaterally General nose exam: Normal external nose present Eyes General: appearance normal, both eyes and all related structures Conjunctivae: conjunctivae normal Neck Neck: Yes full ROM and Yes no lymphadenopathy Resp Effort & Inspection: normal respiratory effort Auscultation: clear to auscultation bilaterally, no crackles, no rales, no rhonchi and no wheezes Cardio Rate: regular rate Rhythm: regular rhythm Skin General skin exam: no rashes or lesions noted Neuro General: patient oriented x3 Gait exam (Neuro): Normal gait present Extrem General: Yes normal to inspection, Yes full ROM and No edema Psych Affect: normal affect Attitude: cooperative Insight: Good insight present (Psych) Judgement: Good judgement present (Psych) Coding Level of Care Code Est Pt Level 3 (46740) Diagnoses Diabetes mellitus type 2 with complications E11.8 Hyperlipidemia associated with type 2 diabetes mellitus E11.69; E78.5 HTN, goal below 130/80 I10 Fatty liver K76.0 Irregular heart rhythm I49.9 Numbness and tingling in right hand R20.0; R20.2 Assessment & Plan Assessment & Plan (1) Diabetes mellitus type 2 with complications: Code(s): E11.8 - Type 2 diabetes mellitus with unspecified complications Category: Medical Plan: Decrease the amount of carbohydrates such as pasta, bread, rice, and potatoes and limit the amount of sweets. Although fruits are generally healthy they should be eaten in moderation as they are still high in sugar. A1c on her last blood work 8.0% plan to increase pioglitazone to 45 mg. (2) Hyperlipidemia associated with type 2 diabetes mellitus: Code(s): E11.69 - Type 2 diabetes mellitus with other specified complication; E78.5 - Hyperlipidemia, unspecified Category: Medical Plan: Avoid foods that are high in cholesterol such as red meat, fried foods, eggs and baked goods. Triglyceride goal of less than 150 and LDL goal of less than 100. Last LDL 76 at goal (3) HTN, goal below 130/80: Code(s): I10 - Essential (primary) hypertension Category: Medical Plan: Continue on current blood pressure medication. Avoid salt intake and encourage healthy diet and regular exercise. (4) Fatty liver: Comment: noted in hx. Refer to GI for Colon and further mgmt 06/2024 LFTs WNL Code(s): K76.0 - Fatty (change of) liver, not elsewhere classified Category: Medical Plan: Continue to monitor LFTs. Healthy diet and regular exercise is encouraged. (5) Irregular heart rhythm: Comment: Noted on exam by Katie Panda 07/2023 - not appreciated on exams and normal EKG - asymptomatic Code(s): I49.9 - Cardiac arrhythmia, unspecified Category: Medical Plan: EKG was normal and irregular heart rhythm not appreciated on her exams. Patient is not symptomatic at this time and we can consider Holter monitor. (6) Numbness and tingling in right hand: Code(s): R20.0 - Anesthesia of skin; R20.2 - Paresthesia of skin Category: Medical Plan: For numbness and tingling in the hand patient reports this has been worsening. I have discussed with her orthopedics will not do surgery if her A1c is above 8.0%. Given her recent values I did reach out to Orthopedics to see if they would reconsider for surgery. Reinforced dietary and lifestyle modification as well as medication adherence this patient as sugar management will be important before and after surgery. She will also reach out to Orthopedics on her own Plan This note was constructed using voice recognition software. While every effort has been made to ensure accuracy and primary school teacher librarian, still areas may have been included sometimes these areas may affect the content or meeting of the given symptoms. Total time spent caring for the patient today was 20 minutes. This includes time spent before the visit reviewing the chart, time spent during the visit, and time spent after the visit and documentation. Patient was informed and verbally consented to the use of an ambient scribe for clinic note documentation during this visit. Medications: New pioglitazone 45 mg PO DAILY 90 tabs 1RF Discontinued pioglitazone Discontinued Reason: Patient no longer taking 30 mg PO DAILY 90 tabs 0RF
== END 2025-02-25 09:32 | disposition home or self-care (01) ==
LOC: HO.HMCH 08:32
DX: E11.8 Type 2 diabetes mellitus with unspecified complications (principal); E11.69 Type 2 diabetes mellitus with other specified complication; E78.5 Hyperlipidemia, unspecified; I10 Essential (primary) hypertension; K76.0 Fatty (change of) liver, not elsewhere classified; I49.9 Cardiac arrhythmia, unspecified; R20.0 Anesthesia of skin; R20.2 Paresthesia of skin

== ENCOUNTER 2025-03-27 08:44 | Outpatient (AMB) | payer OTHER, SELFPAY ==
--- NOTE | 2025-03-27 08:58 | MHC.OFFVIS ---
Vital Signs 03/27/25 08:59 Height 5 ft 9 in Weight 201 lb BMI 29.7 Intake Visit Reasons: OV - Discuss Right Carpal Tunnel Release Intake Note: Jackeline is a 54 year old right hand dominant female who presents today for a follow up of her Bilateral Carpal Tunnel Syndrome. Right is more symptomatic than the left. At her last visit we discussed that she needed to get her A1c 8.0 or lower prior to booking surgical intervention. As of 02/18/25 A1c - 8.0%. Product Support Analyst Required: Yes Product Support Analyst Language: Martiniquais Allergies No Known Allergies Allergy (Verified 03/27/25 09:00) HPI HPI OV - Discuss Right Carpal Tunnel Release: Details: Jackeline is a 54 year old right hand dominant female who presents today for a follow up of her Bilateral Carpal Tunnel Syndrome. Right is more symptomatic than the left. At her last visit we discussed that she needed to get her A1c 8.0 or lower prior to booking surgical intervention. As of 02/18/25 A1c - 8.0%. Patient has had EMG done on the right, which revealed moderate to severe right median neuropathy consistent with carpal tunnel syndrome. No EMG of the left. [facility] Medical History CKD (chronic kidney disease) stage 3, GFR 30-59 ml/min A-fib Cholesterol calculus of gallbladder Fatty (change of) liver, not elsewhere classified Surgical History No pertinent past surgical history Family History Mother Diabetes Social History Household Members: Spouse Housing: Apartment Alcohol intake: current Alcohol intake frequency: holidays/special occasions only Patient Tobacco Use Status: Never used Tobacco Tobacco use type: Cigarette e-Cigarette/Vaping Use: Never Used Second Hand Smoke Exposure: No service: No Current occupational status: employed 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 Good APB muscle firing and good finger cross. Vascular: Capillary refill brisk. ROM: Patient can make a fist and extend all their digits. Skin: No lacerations or abrasions noted. General: No ecchymosis. No erythema or evidence of infection. Assessment & Plan Assessment & Plan (1) Right carpal tunnel syndrome: Code(s): G56.01 - Carpal tunnel syndrome, right upper limb Category: Medical (2) Numbness and tingling in left hand: Code(s): R20.0 - Anesthesia of skin; R20.2 - Paresthesia of skin Category: Medical Plan 1. Right carpal tunnel syndrome Symptoms intermittent, daily, worse at night I educated the patient about the condition. I discussed both operative and nonoperative treatment options. The patient would like to proceed with surgery. The risks and benefits of operative treatment were discussed with the patient and the patient wishes to proceed with surgery. These risks include, but are not limited to, risk of damage to blood vessels, nerves, tendons, infection, recurrence, incomplete relief of preoperative symptoms, persistent pain, possible need for further surgery, and the risks associated with regional blocks and/or anesthesia. Plan is to take the patient to the operating room at some point in the next few weeks for the following procedures: 1. Right carpal tunnel release under local anesthesia All of the preoperative paperwork including the consent was discussed today. All of the patient's questions were answered in the clinic today. The patient understands that they will be in contact with our logistics coordinator to discuss scheduling their procedure. Patient reports diabetes, last A1c 8.0 Denies blood thinners, asthma, heart issues, lung issues, kidney issues, or current smoking. 2. Numbness and tingling of the left hand Symptoms intermittent, daily, worse at night Patient is educated about this condition Patient is educated about the typical treatment course We will proceed with operative intervention for right carpal tunnel syndrome at this time, but afterwards, we will obtain an EMG of the left hand to assess for carpal or cubital tunnel syndromes Patient understands this and is amenable to this plan Coding Level of Care Code Est Pt Level 4 (10983) Diagnoses Right carpal tunnel syndrome G56.01 Numbness and tingling in left hand R20.0; R20.2
[2025-03-27 08:59] VITALS: BMI 29.7
== END 2025-03-27 09:54 | disposition home or self-care (01) ==
LOC: HO.HOS 08:45
DX: G56.01 Carpal tunnel syndrome, right upper limb (principal); R20.0 Anesthesia of skin; R20.2 Paresthesia of skin
CPT/HCPCS: 99214